=== PATIENT | male | born 1985 | race Caucasian/White ===

== ENCOUNTER 2021-06-20 21:50 | Emergency (ER) | payer OTHER ==
[~2021-06-20] VITALS: Ht 170.2 cm; Wt 106.6 kg
[2021-06-20 21:51] VITALS: BP 135/89
[2021-06-20] MEDS ORDERED: OMEP-218 PO (22:01)
[2021-06-20] MEDS ORDERED: LISI10TA22 PO (22:01)
[2021-06-20] MEDS ORDERED: DULO1CAP6 PO (22:01)
[2021-06-20] MEDS ORDERED: CYCL-707 PO (22:01)
[2021-06-20] MEDS ORDERED: TIZA4TAB4 PO (22:01)
[2021-06-20] MEDS ORDERED: GABA800T4 PO (22:01)
[2021-06-20] MEDS ORDERED: BUSP10TA PO (22:01)
[2021-06-20] MEDS ORDERED: QUET100T2 PO (22:01)
[2021-06-21 00:25] LABS: BASO # 0.1 10^3/uL (0.0-0.2); BASO % 0.6 % (0.0-1.0); EOS # 0.2 10^3/uL (0.0-0.5); EOS % 1.5 % (0.0-3.0); HEMATOCRIT 45.5 % (42.0-52.0); HEMOGLOBIN 15.6 g/dl (13.5-17.5); LYMPH % 22.8 % (24.0-44.0); MEAN CORPUSCULAR HEMOGLOBIN 30.1 pg (27.0-33.0); MEAN CORPUSCULAR HGB CONC 34.3 g/dl (32.0-36.5); MEAN CORPUSCULAR VOLUME 87.8 fl (80.0-96.0); MONO # 0.9 10^3/uL (0.0-0.8); MONO % 6.6 % (2.0-8.0); NEUTROPHILS # 8.8 10^3/uL (1.5-8.5); NEUTROPHILS % 67.8 % (36.0-66.0); PLATELET COUNT, AUTOMATED 292 10^3/uL (150-450); RED BLOOD COUNT 5.18 10^6/uL (4.30-6.10)
[2021-06-21 00:27] LABS: ALT/SGPT 60 U/L (12-78); BILIRUBIN,TOTAL 0.3 MG/DL (0.2-1.0); BLOOD UREA NITROGEN 9 MG/DL (7-18); CALCIUM LEVEL 9.4 MG/DL (8.5-10.1); CARBON DIOXIDE LEVEL 28 MEQ/L (21-32); CHLORIDE LEVEL 108 MEQ/L (98-107); CREATININE FOR GFR 0.91 MG/DL (0.70-1.30); GLOMERULAR FILTRATION RATE > 60.0 (>60); GLUCOSE, FASTING 107 MG/DL (70-100); SODIUM LEVEL 141 MEQ/L (136-145)
[2021-06-21] MEDS ORDERED: ISOVUE-370 76% 100ML VIAL As Ordered ONE (00:52)
--- NOTE | 2021-06-21 01:09 | REPVR ---
PROCEDURE INFORMATION: Exam: CT Abdomen And Pelvis With Contrast Exam date and time: 06/20/2021 11:49 PM Age: 36 years old Clinical indication: Abdominal pain; Additional info: Abdominal pain/brbpr TECHNIQUE: Imaging protocol: Computed tomography of the abdomen and pelvis with contrast. Radiation optimization: All CT scans at this facility use at least one of these dose optimization techniques: automated exposure control; mA and/or kV adjustment per patient size (includes targeted exams where dose is matched to clinical indication); or iterative reconstruction. Contrast material: ISO; Contrast volume: 100 ml; Contrast route: INTRAVENOUS (IV); COMPARISON: No relevant prior studies available. FINDINGS: Lungs: No suspicious mass or airspace process in the visualized lung bases. Liver: Liver is decreased in density, consistent with fatty infiltration. Gallbladder and bile ducts: Gallbladder is present and shows no evidence of gallstone. Pancreas: Pancreas appears normal. No focal mass or peripancreatic inflammation. Spleen: Spleen appears homogeneous without focal mass. Adrenal glands: Adrenal glands are normal in appearance. Kidneys and ureters: Left kidney is unremarkable. Right kidney demonstrates mild collecting system and ureteral dilatation but with no identifiable stone or functional delay. Stomach and bowel: No evidence of small bowel obstruction. No evidence of acute diverticulitis. Appendix: Appendix is not seen. No RLQ inflammation to suggest appendicitis. Intraperitoneal space: No pneumoperitoneum. Vasculature: No aortic aneurysm. Main portal and splenic veins enhance normally. Lymph nodes: No enlarged lymph nodes. Urinary bladder: Urinary bladder is distended. Reproductive: No overt enlargement of the prostate gland. Bones/joints: Bony structures show no acute fracture or destructive process. Transitional vertebral segment is present at the lumbosacral junction. Soft tissues: Fat containing umbilical hernia is present. IMPRESSION: No acute or concerning abdominal or pelvic process to explain rectal bleeding. Electronically signed by: Donnell Ritchie On 06/21/2021 01:08:56 AM
[2021-06-21] MEDS ORDERED: GI COCKTAIL 50ML BTL(HYOSCYAMINE/MAALOX/LIDOCAINE VISCOUS)(1:3:1) PO ONE (02:50)
[2021-06-21] MEDS ORDERED: ONDA4TAB6 PO (02:50)
[2021-06-21] MEDS ORDERED: SUCR1TA PO (02:50)
[2021-06-21] MEDS ORDERED: ONDANSETRON 4MG/2ML VIAL IV ONE (02:50)
== END 2021-06-21 04:10 | disposition home or self-care (01) ==
LOC: M ED 21:50
DX: K29.70 Gastritis, unspecified, without bleeding (principal); I10 Essential (primary) hypertension; F33.9 Major depressive disorder, recurrent, unspecified; Z79.899 Other long term (current) drug therapy; F12.20 Cannabis dependence, uncomplicated
CPT/HCPCS: 74177; 80053; 83605; 83735; 85025; 86140; 87798; 96374; 99282; J2405; Q9967

== ENCOUNTER 2021-08-15 02:42 | Emergency (ER) | payer OTHER ==
[~2021-08-15] VITALS: Ht 172.7 cm; Wt 102.7 kg
[~2021-08-15 02:42] MED LIST: BUSP10TA PO; CYCL-707 PO; DULO1CAP6 PO; GABA800T4 PO; LISI10TA22 PO; OMEP-218 PO; ONDA4TAB6 PO; QUET100T2 PO; SUCR1TA PO; TIZA4TAB4 PO
--- OUTSIDE RECORDS SUMMARY | 2021-08-15 02:47 | CCD ---
Author Author Lalo Gerard Organization Unknown Address [address] [address] Phone Care Team Providers Care Wool Puller Name Role Phone GerardAnaJefferson PCP Allergies, Adverse Reactions, Alerts Concept Allergy Name Reaction Severity Onset Date Status Documentation Date Phone Number Npid Taxonomy Code Taxonomy Desc Author Last Name Author Fi rst Name Concept Type [id number] Invega Trinza (paliperidone palm (3-month)) Blah 09/26/2017 Active 09/26/2017 [id number] Licensed Practical Nurse Ed hoang RXNORM Problem List Concept Problem Description Status Start Date Created Date Resolv ed Date Snomed Code F25.1 Schizoaffective Disorder, Depressive type Active 09/30/20 19 09/30/2019 F41.1 Generalized Anxiety Disorder Active 06/30/2016 06/30/2016 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 Active 09/30/2019 09/30/2019 Z72.0 Tobacco Use Disorder, Mild Active 07/26/2021 F12.10 Cannabis Use Disorder, Mild Active 07/26/2021 Medications Rx Norm Medication Route Route Concept Start Date Stop Date Dosage Karthikeyan quency Duration Formula Strength Dosage Form Dosage Form Code Dosage Description Medication Id Account Npid Author First Name Author Last Name Taxonomy Code Taxonomy Desc Phone Number [id number] duloxetine by mouth [id number] 08/23/2020 twice a day 60 mg capsule,delayed release(DR/EC) [id number] Hunter Gerard [id number] Nurse Practitioner [phone] [id number] buspirone 01/03/2021 09/13/2021 28 10 mg tablet 33896 [id number] Jefferson Gerard [id number] Nurse Practitioner [phone] [id number] quetiapine 01/03/2021 09/13/2021 28 400 mg tablet 75826 [id number] Jefferson Gerard [id number] Nurse Practitioner [phone] [id number] quetiapine 04/29/2021 09/19/2021 30 100 mg tablet 56889 [id number] [id number] Jefferson Gerard [id number] Nurse Practitioner [phone] Social History Social History Element Description Concept Effective Date Smoking Status Current every day smoker [id number] 2 Immunizations No Data in Section Vital Signs No Data in Section Procedures Date Concept Id Description Targeted Site Concept Targeted Site Concept Type 07/26/2021 54384-37 [facility] Telemed E/M Lvl 3--Est pt CPT Patient has no history of implantable de vices Encounters Encounter Start Date End Date Encounter Type Description Diagnosis Di agnosis Desc Location Author First Name Author Last Name Npid Taxonomy Cod e Taxonomy Desc Phone Number Location Addr1 Location Addr2 Location [facility] Location Sta te Location [facility] [id number] 07/26/2021 07/26/2021 [id number] [facility] Telemed E/M Lvl 3--Est p t F25.1 Schizoaffective disorder, depressive type [facility] Moustapha Paulino [phone] [id number] Nurse Practitioner [phone] [address] [address] Plan of Treatment No Data in Section Lab Results No Data in Section Instructions No Data in Section Functional Cognitive Status No Data in Section Insurance Providers Insurance Id Policy Effective Date Policy Thru Date Hstry N fifi [id number] 2018 [employer] Managed Taurus johnson
--- OUTSIDE RECORDS SUMMARY | 2021-08-15 02:47 | CCD | Continuity of Care Document ---
Author Author Lalo BOYCE Organization Unknown Address [address], [address] [place] [address] Phone [phone] Care Team Providers Care Merchandising Internship Name Role Phone Lico Walton M.D. AUTM [phone] Problems Active Problems Provider Date Essential hypertension Peyman Boyce M.D. Onset: 04/15 Social History Type Date Description Comments Sex Unknown ETOH Use Denies alcohol use Tobacco Use Start: Unknown Non Smoker Allergies, Adverse Reactions, Alerts Description No Known Drug Allergies Medications Active Medications SIG Qnty Indications Ordering Provide r Date Clenpiq 10-3.5-12mg-GM -GM/160ML S olution follow pre-procedure instructions. start day before procedure. (if not covered by insurance please fill gavilyte script). 320ml Jeremiah Boyce M.D. 05/25/2021 Gavilyte-G 236gm Solution Rec mix with 4 liters of water to prepare solution. follow pre-procedure instructions. 4000ml Peyman Boyce M.D. 05/25/[address] take 4 tablets together as per bowel preparation instructions. 4tabs Peyman Boyce M.D. 05/25/2021 Buspirone HCL 10mg Tablets 1t ab tid Unknown Duloxetine HCL 60mg Caps DR Part 1tab qd Unknown Gabapentin 800mg Tablets 1tab tid Unknown Lisinopril 10mg Tablets 1tab qd Unknown Omeprazole 20mg Capsules DR 1 cap bid Unknown Quetiapine Fumarate 400mg Tablets 1tab qd (take w/50mg) Unknown Quetiapine Fumarate 50mg Tablets 1tab qd (take w/400mg) Unknown Immunizations Description No Information Available Vital Signs Date Vital Result Comment 05/11/2021 12:11pm BP Systolic 118 mmHg BP Diastolic 70 mmHg Height 67 inches 5'7" Weight 230.00 lb BMI (Body Mass Index) 36.0 kg/m2 Noble Body Weight 148 lb Weight 104.328 kg BSA (Body Surface Area) 2.15 m2 Results Test Acquired Date Facility Test Result H/L Range Note CBC With Differential 05/11/2021 [facility] Main Lab [address] [place] [address] [phone] White Blood Count 9.6 10 Normal 4.0-10.0 Red Blood Count 5.33 10 Normal 4.30-6.10 Hemoglobin 15.6 g/dL Normal 13.5-17.5 Hematocrit 46.5 % Normal 42.0-52.0 Mean Corpuscular Volume 87.2 fl Normal 80.0-96.0 Mean Corpuscular Hemoglobin 29.3 pg Normal 27.0-33.0 Mean Corpuscular HGB Conc 33.5 g/dL Normal 32.0-36.5 Red Cell Distribution Width 12.9 % Normal 11.5-14.5 Platelet Count, Automated 278 10 Normal 150-450 Neutrophils % 44.3 % Normal 36.0-66.0 Lymph % 42.3 % Normal 24.0-44.0 Rice % 9.3 % High 2.0-8.0 Eos % 2.6 % Normal 0.0-3.0 Baso % 0.7 % Normal 0.0-1.0 Immature Granulocyte % 0.8 % Normal 0-3.0 Nucleated Red Blood Cell % 0.0 % Normal 0-0 Neutrophils # 4.3 10 Normal 1.5-8.5 Lymph # 4.1 10 Normal 1.5-5.0 Rice # 0.9 10 High 0.0-0.8 Eos # 0.3 10 Normal 0.0-0.5 Baso # 0.1 10 Normal 0.0-0.2 Total Iron Binding Capacit 05/11/2021 [facility] Main Lab [address] [place] [address] [phone] Iron (Fe) 83 g/dL Normal 65-175 Total Iron Binding Capacity 350 g/dL Normal 250-450 Percent Saturation 23.7 % Normal 19.7-50.0 Laboratory test finding 05/11/2021 [facility] Main Lab [address] [place] [address] [phone] Ferritin 74 NG/ML Normal 26-388 BUN & Creatinine ([facility]) 05/11/2021 [facility] Main Lab [address] [place] [address] [phone] Blood Urea Nitrogen 11 mg/dL Normal 7-18 Creatinine With GFR 05/11/2021 [facility] Lab [address] [place] [address] [phone] Creatinine For GFR 0.84 mg/dL Normal 0.70-1.30 Glomerular Filtration Rate > 60.0 Normal >60 1 Liver Profile 05/11/2021 [facility] Lab [address] [place] [address] [phone] Ast/Sgot 38 U/L High 7-37 Alt/SGPT 73 U/L Normal 12-78 Alkaline Phosphatase 115 U/L Normal 45-117 Bilirubin,Total 0.3 mg/dL Normal 0.2-1.0 Bilirubin,Direct < 0.1 mg/dL Normal 0.0-0.2 Total Protein 7.0 GM/DL Normal 6.4-8.2 Albumin 3.9 GM/DL Normal 3.2-5.2 Albumin/Globulin Ratio 1.3 Normal Laboratory test finding 05/11/2021 [facility] Main Lab [address] [place] [address] [phone] Tissue Transglutaminase IgA <2 U/mL Normal 0-3 2 Iga Subclasses 05/11/2021 [facility] Lab [address] [place] [address] [phone] IgA Serum (part of Subclasses) 138 mg/dL Normal 9 0-386 Igasub2 105.2 mg/dL Normal 73.2-301.2 Igasub3 26.2 mg/dL Normal 13.4-97.9 Laboratory test finding 05/11/2021 [facility] Main Lab [address] [place] [address] [phone] Stool For Polys <pending> Fat Fecal Qualitative <pending> Pancreatic Elastase Stool Sendout <pending> 1 Units are mL/min/1.73 m2 Chronic Kidney Disease Staging per NKF: Stage I & II GFR >=60 Normal to Mildly Decreased Stage III GFR 30-59 Moderately Decreased Stage IV GFR 15-29 Severely Decreased Stage V GFR <15 Very Little GFR Left ESRD GFR <15 on ENTRY CLERK 2 Negative 0 - 3 Weak Positive 4 - 10 Positive >10 . Tissue Transglutaminase (tTG) has been identified as the endomysial antigen. Studies have demonstr- ated that endomysial IgA antibodies have over 99% specificity for gluten sensitive enteropathy. Performed at: - [facility] [address] [id number] [employer] Machine Operator: Cee Padilla MD, Phone: [phone] Performed at: - [facility] [address] [id number] [place] Machine Operator: Jayna Braswell MD, Phone: [phone] Procedures Date Code Description Status 05/11/2021 81923 Office/Outpatient New Moderate M DM 45-59 Minutes Completed Medical Devices Description No Information Available Encounters Type Date Location Provider Dx Diagnosis Office Visit 05/11/2021 11:10a [facility] M.D. R19.7 Diarrhea, unspecified K92.1 Melena Assessments Date Code Description Provider 05/11/2021 R19.7 Diarrhea, unspecified Peyman Boyce M.D. 05/11/2021 K92.1 Melena Peyman Cantor ala, M.D. Plan of Treatment Future Appointment(s):* 07/18/2021 2:00 am - Peyman Boyce M.D. at [facility] Gastroenterology Practice Functional Status Description No Information Available Mental Status Description No Information Available Referrals Refer to Dr Reason for Referral Status Appt Date Peyman Boyce M.D. K59.00 CONSTIPATION Scheduled 05/11/2021 [facility] [address], [address] [place] [address] [phone]
--- OUTSIDE RECORDS SUMMARY | 2021-08-15 02:48 | CCD ---
Author Author [facility] Address Unknown Phone Unavailable Care Team Providers Care Preschool Teacher Name Role Phone Maren Walton MD Unavailable Unavailable Maren Walton MD Unavailable Unavailable Maren Walton MD Unavailable Unavailable Maren Walton MD Unavailable Unavailable Maren Walotn MD Unavailable Unavailable Maren Walton MD Unavailable Unavailable Maren Walton MD Unavailable Unavailable Maren Walton MD Unavailable Unavailable Maren Walton MD Unavailable Unavailable Maren Walton MD Unavailable Unavailable Maren Walton MD Unavailable Unavailable Maren Walton MD Unavailable Unavailable Maren Walton MD Unavailable Unavailable Maren Walton MD Unavailable Unavailable Maren Walton MD Unavailable Unavailable Maren Walton MD Unavailable Unavailable Maren Walton MD Unavailable Unavailable Maren Walton MD Unavailable Unavailable Maren Walton MD Unavailable Unavailable Maren Walton MD Unavailable Unavailable Maren Walton MD Unavailable Unavailable Maren Walton MD Unavailable Unavailable Maren Walton MD Unavailable Unavailable Maren Walton MD Unavailable Unavailable Maren Walton MD Unavailable Unavailable Maren Walton MD Unavailable Unavailable Maren Walton MD Unavailable Unavailable Maren Walton MD Unavailable Unavailable Maren Walton MD Unavailable Unavailable Maren Walton MD Unavailable Unavailable Maren Walton MD Unavailable Unavailable Maren Walton MD Unavailable Unavailable Maren Walton MD Unavailable Unavailable Maren Walton MD Unavailable Unavailable Maren Walton MD Unavailable Unavailable Maren Walton MD Unavailable Unavailable Maren Walton MD Unavailable Unavailable Maren Walton MD Unavailable Unavailable Maren Walton MD Unavailable Unavailable Maren Walton MD Unavailable Unavailable Maren Walton MD Unavailable Unavailable Maren Walton MD Unavailable Unavailable Maren Walton MD Unavailable Unavailable Maren Walton MD Unavailable Unavailable Maren Walton MD Unavailable Unavailable Maren Walton MD Unavailable Unavailable Maren Walton MD Unavailable Unavailable Maren Walton MD Unavailable Unavailable Maren Walton MD Unavailable Unavailable Maren Walton MD Unavailable Unavailable Maren Walton MD Unavailable Unavailable Maren Walton MD Unavailable Unavailable Maren Walton MD Unavailable Unavailable Maren Walton MD Unavailable Unavailable Maren Walton MD Unavailable Unavailable Maren Walton MD Unavailable Unavailable Maren Walton MD Unavailable Unavailable Maren Walton MD Unavailable Unavailable Maren Walton MD Unavailable Unavailable Maren Walton MD Unavailable Unavailable Maren Walton MD Unavailable Unavailable Maren Walton MD Unavailable Unavailable Maren Walton MD Unavailable Unavailable Maren Walton MD Unavailable Unavailable Maren Walton MD Unavailable Unavailable Maren Walton MD Unavailable Unavailable Maren Walton MD Unavailable Unavailable Maren Walton MD Unavailable Unavailable Maren Walton MD Unavailable Unavailable Maren Walton MD Unavailable Unavailable Maren Walton MD Unavailable Unavailable Maren Walton MD Unavailable Unavailable Maren Walton MD Unavailable Unavailable Maren Walton MD Unavailable Unavailable Maren Walton MD Unavailable Unavailable Maren Walton MD Unavailable Unavailable Maren Walton MD Unavailable Unavailable Maren Walton MD Unavailable Unavailable Maren Walton MD Unavailable Unavailable Maren Walton MD Unavailable Unavailable Maren Walton MD Unavailable Unavailable Maren Walton MD Unavailable Unavailable Maren Walton MD Unavailable Unavailable Maren Walton MD Unavailable Unavailable Maren Walton MD Unavailable Unavailable Maren Walton MD Unavailable Unavailable Maren Walton MD Unavailable Unavailable Maren Walton MD Unavailable Unavailable Maren Walton MD Unavailable Unavailable Maren Walton MD Unavailable Unavailable Maren Walton MD Unavailable Unavailable Maren Walton MD Unavailable Unavailable Maren Walton MD Unavailable Unavailable Silva, Hugh Unavailable Unavailable Silva, Hugh Unavailable Unavailable Silva, Hugh Unavailable Unavailable Silva, Hugh Unavailable Unavailable Silva, Hugh Unavailable Unavailable Silva, Hugh Unavailable Unavailable Silva, Hugh Unavailable Unavailable Silva, Hugh Unavailable Unavailable Silva, Hugh Unavailable Unavailable Silva, Hugh Unavailable Unavailable Silva, Hugh Unavailable Unavailable Silva, Hugh Unavailable Unavailable Silva, Hugh Unavailable Unavailable Silva, Hugh Unavailable Unavailable Silva, Hugh Unavailable Unavailable Silva, Hugh Unavailable Unavailable Silva, Hugh Unavailable Unavailable Silva, Uhgh Unavailable Unavailable Silva, Hugh Unavailable Unavailable Silva, Hugh Unavailable Unavailable Silva, Hugh Unavailable Unavailable Silva, Hugh Unavailable Unavailable Silva, Hugh Unavailable Unavailable Silva, Hugh Unavailable Unavailable Silva, Hugh Unavailable Unavailable Silva, Hugh Unavailable Unavailable Silva, Hugh Unavailable Unavailable Silva, Hugh Unavailable Unavailable Silva, Hugh Unavailable Unavailable Silva, Hugh Unavailable Unavailable Silva, Hugh Unavailable Unavailable Silva, Hugh Unavailable Unavailable Silva, Hugh Unavailable Unavailable Silva, Hugh Unavailable Unavailable Silva, Hugh Unavailable Unavailable Silva, Hugh Unavailable Unavailable Silva, Hugh Unavailable Unavailable Silva, Hugh Unavailable Unavailable Silva, Hugh Unavailable Unavailable Silva, Hugh Unavailable Unavailable Silva, Hugh Unavailable Unavailable Silva, Hugh Unavailable Unavailable Silva, Hugh Unavailable Unavailable Silva, Hugh Unavailable Unavailable Silva, Hugh Unavailable Unavailable Ap MARTINEZ MD Unavailable Unavailable Ap MARTINEZ MD Unavailable Unavailable Ap MARTINEZ MD Unavailable Unavailable Ap MARTINEZ MD Unavailable Unavailable Ap MARTINEZ MD Unavailable Unavailable Ap MARTINEZ MD Unavailable Unavailable Ap MARTINEZ MD Unavailable Unavailable Ap MARTINEZ MD Unavailable Unavailable Ap MARTINEZ MD Unavailable Unavailable Ap MARTINEZ MD Unavailable Unavailable Ap MARTINEZ MD Unavailable Unavailable Ap MARTINEZ MD Unavailable Unavailable Ap MARTINEZ MD Unavailable Unavailable Ap MARTINEZ MD Unavailable Unavailable Ap MARTINEZ MD Unavailable Unavailable Ap MARTINEZ MD Unavailable Unavailable Ap MARTINEZ MD Unavailable Unavailable Sj Gerard PHARMACY TECHNICIAN ASSISTANT Unavailable Unavailable Sj Gerard PHARMACY TECHNICIAN ASSISTANT Unavailable Unavailable Sj Gerard PHARMACY TECHNICIAN ASSISTANT Unavailable Unavailable Monty BOYCE MD Unavailable Unavailable Monty BOYCE MD Unavailable Unavailable Monty BOYCE MD Unavailable Unavailable Monty BOYCE MD Unavailable Unavailable Monty BOYCE MD Unavailable Unavailable Monty BOYCE MD Unavailable Unavailable Monty BOYCE MD Unavailable Unavailable Monty BOYCE MD Unavailable Unavailable Monty BOYCE MD Unavailable Unavailable Monty BOYCE MD Unavailable Unavailable Monty BOYCE MD Unavailable Unavailable Monty BOYCE MD Unavailable Unavailable Monty BOYCE MD Unavailable Unavailable Monty BOYCE MD Unavailable Unavailable Monty BOYCE MD Unavailable Unavailable Monty BOYCE MD Unavailable Unavailable Monty BOYCE MD Unavailable Unavailable Monty BOYCE MD Unavailable Unavailable Monty BOYCE MD Unavailable Unavailable Monty BOYCE MD Unavailable Unavailable Monty BOYCE MD Unavailable Unavailable Monty BOYCE MD Unavailable Unavailable Monty BOYCE MD Unavailable Unavailable Monty BOYCE MD Unavailable Unavailable Monty BOYCE MD Unavailable Unavailable Monty BOYCE MD Unavailable Unavailable Monty BOYCE MD Unavailable Unavailable Monty BOYCE MD Unavailable Unavailable Monty BOYCE MD Unavailable Unavailable Monty BOYCE MD Unavailable Unavailable Monty BOYCE MD Unavailable Unavailable Monty BOYCE MD Unavailable Unavailable Monty BOYCE MD Unavailable Unavailable Re-disclosure Warning The records that you are about to access may contain information from federally-assisted alcohol or drug abuse programs. If such information is present, then the following federally mandated warning applies: This information has been disclosed to you from records protected by federal confidentiality rules (42 CFR part 2). The federal rules prohibit you from making any further disclosure of this information unless further disclosure is expressly permitted by the written consent of the person to whom it pertains or as otherwise permitted by 42 CFR part 2. A general authorization for the release of medical or other information is NOT sufficient for this purpose. The Federal rules restrict any use of the information to criminally investigate or prosecute any alcohol or drug abuse patient.The records that you are about to access may contain highly sensitive health information, the redisclosure of which is protected by Article 27-F of the [facility] Public Health law. If you continue you may have access to information: Regarding HIV / AIDS; Provided by facilities licensed or operated by the [facility] Office of Mental Health; or Provided by the [facility] Office for People With Developmental Disabilities. If such information is present, then the following [facility] mandated warning applies: This information has been disclosed to you from confidential records which are protected by state law. State law prohibits you from making any further disclosure of this information without the specific written consent of the person to whom it pertains, or as otherwise permitted by law. Any unauthorized further disclosure in violation of state law may result in a fine or residential sentence or both. A general authorization for the release of medical or other information is NOT sufficient authorization for further disc losure. Allergies and Adverse Reactions Type Description Substance Reaction Status Data Source(s ) Propensity to adverse reactions to substance Invega Tr inza (paliperidone palm (3-month)) 2.625 ML paliperidone palmitate 312 MG/ML Prefilled Sy ringe [Invega] Active [facility] ([facility]) Family History Family Member Name Family Member Gender Family Member Status Date o f Status Description Data Source(s) Unknown Male Problem [facility] ([facility]) Encounters Encounter Providers Location Date Indications Data Source(s ) Outpatient Attender: Jefferson Gerard NP [facility] Skilled Nursing 07/26/2021 02:30:00 AM EDT - 07/26/2021 02:30:00 AM EDT [facility] ([facility]) Attender: Jefferson Gerard NP 07/26/2021 12:00:00 AM EDT [facility] ([facility]) Outpatient Attender: SANTIAGO Contreras/Humberto/Reed yates/Reincorbin 05/11/2021 11:10:00 AM EDT [facility]) Outpatient Attender: Jefferson Gerard PHARMACY TECHNICIAN ASSISTANT [facility] 03/30/2021 01:00:00 AM EDT - 03/30/2021 01:00:00 AM EDT [facility] ([facility]) Attender: Jefferson Gerard PHARMACY TECHNICIAN ASSISTANT 03/30/2021 12:00:00 AM EDT [facility] ([facility]) Dennis Walton MD: [address] [place] [address], Ph. Attender: Dennis Walton MD [facility] Medical 03/25/2021 12:00:00 AM EDT [facility] ([facility]) Dennis Walton MD: [address] [place] [address], Ph. Attender: Dennis Walton MD [facility] Medical 03/25/2021 12:00:00 AM EDT [facility] ([facility]) Outpatient Attender: Hugh Silva Physical Therapy 03/16/2021 10:00:0 0 AM EDT [facility] ([facility]) Dennis Walton MD: [address] [place] [address], Ph. Attender: Dennis Walton MD [facility] Medical 03/15/2021 12:00:00 AM EDT [facility] ([facility]) Dennis Walton MD: [address] [place] [address], Ph. Attender: Dennis Walton MD [facility] Medical 03/15/2021 12:00:00 AM EDT [facility] ([facility]) Dennis Walton MD: [address] [place] [address], Ph. Attender: Dennis Walton MD [facility] Medical 01/31/2021 12:00:00 AM EDT [facility] ([facility]) Dennis Walton MD: [address] [place] [address], Ph. Attender: Dennis Walton MD [facility] Medical 01/31/2021 12:00:00 AM EDT [facility] ([facility]) Dennis Walton MD: [address] [place] [address], Ph. Attender: Dennis Walton MD [facility] Medical 01/31/2021 12:00:00 AM EDT [facility] ([facility]) Outpatient Attender: Jefferson Gerard NP [facility] 01/26/2021 01:00:00 AM EDT - 01/26/2021 01:00:00 AM EDT [facility] ([facility]) Attender: Jefferson Gerard NP 01/26/2021 12:00:00 AM EDT [facility] ([facility]) Outpatient Attender: Jefferson Gerard NP [facility] 12/01/2020 02:00:00 AM EST - 12/01/2020 02:00:00 AM EST [facility] ([facility]) Attender: Jefferson Gerard NP 12/01/2020 12:00:00 AM EST [facility] ([facility]) Attender: Jefferson Gerard NP 12/01/2020 12:00:00 AM EST [facility] ([facility]) Outpatient Attender: Jefferson Gerard NP [facility] 11/03/2020 10:00:00 AM EST - 11/03/2020 10:00:00 AM EST [facility] ([facility]) Attender: Jefferson Gerard NP 11/03/2020 12:00:00 AM EST [facility] ([facility]) Outpatient Attender: DENNIS MARTINEZ MD [facility] 09/27/2020 01:00:00 AM EST - 09/27/2020 01:00:00 AM EST [facility] ([facility]) Attender: DENNIS MARTINEZ MD 09/27/2020 12:00:00 A M EST [facility] ([facility]) Functional Status Immunizations Vaccine Date Status Description Data Source(s) Tdap 03/25/2021 11:41:00 AM EDT completed 03/25/2021 0.5 mL [facility] ([facility]) Tdap 03/25/2021 11:41:00 AM EDT completed 03/25/2021 0.5 mL [facility] ([facility]) COVID-19 VACCINE Horace 03/08/2021 12:00:00 AM EDT completed [place] Vaccine Series Complete: YESThis Data wa s Submitted to [facility] Via [employer]. Medications Medication Brand Name Start Date Product Form Dose Route Admi nistrative Instructions Pharmacy Instructions Status Indications Reaction Description Data Source(s) Clenpiq Clenpiq 05/25/2021 12:00:00 AM EDT active [facility] ([facility], ) POLYETHYLENE GLYCOL 3350 59 MG/ML / Pota ssium Chloride 0.01 MEQ/ML / Sodium Bicarbonate 0.02 MEQ/ML / Sodium Chloride 0.025 MEQ/ML / sodium sulfate 0.04 MEQ/ML Oral Solution [Gaviltye-G] Gavilyte-G 05/25/2021 12:00:00 AM EDT active [facility] ([facility], ) Bisacodyl 5 MG Delayed Release Oral Tablet [Dulcolax] Dulcol ax 05/25/2021 12:00:00 AM EDT active [facility] ([facility], ) quetiapine 100 MG Oral Tablet quetiapine 04/29/2021 12:00:00 AM EDT 100 mg completed <td ID="Medicat ionRxNorm_4">638659</td><td ID="MedicationMedication_4">quetiapine</td><td ID="MedicationRoute_4"></td><td ID="MedicationRouteConcept_4"></td><td ID="MedicationStartDate_4">04/29/2021</td><td ID="MedicationStopDate_4">09/19/2021</td><td ID="MedicationDosageFrequency_4"></td><td ID="MedicationDuration_4">30</td><td ID="MedicationFormulaStrength_4">100 mg</td><td ID="MedicationDosageForm_4">tablet</td><td ID="MedicationDosageFormCode_4"></td><td ID="MedicationDosageDescription_4"></td><td ID="MedicationMedicationId_4">[id number]</td><td ID="MedicationAccount_4">[id number]</td><td ID="MedicationNpid_4">[id number]</td><td ID="MedicationAuthorFirstName_4">Jefferson</td><td ID="MedicationAuthorLastName_4">Gerard</td><td ID="MedicationTaxonomyCode_4">[id number]</td><td ID="MedicationTaxonomyDesc_4">Nurse Practitioner</td><td ID="MedicationPhoneNumber_4">[phone]</td> [facility] ([facility]) gabapentin 800 MG Oral Tablet Gabapentin 03/16/2021 12:00:00 AM EDT ORAL active [facility] ([facility]) quetiapine 100 MG Oral Tablet quetiapine 01/11/2021 12:00:00 AM EDT 100 mg completed <td ID="Medicat ionRxNorm_5">266672</td><td ID="MedicationMedication_5">quetiapine</td><td ID="MedicationRoute_5"></td><td ID="MedicationRouteConcept_5"></td><td ID="MedicationStartDate_5">01/11/2021</td><td ID="MedicationStopDate_5">02/10/2021</td><td ID="MedicationDosageFrequency_5"></td><td ID="MedicationDuration_5">30</td><td ID="MedicationFormulaStrength_5">100 mg</td><td ID="MedicationDosageForm_5">tablet</td><td ID="MedicationDosageFormCode_5"></td><td ID="MedicationDosageDescription_5"></td><td ID="MedicationMedicationId_5">[id number]</td><td ID="MedicationAccount_5">[id number]</td><td ID="MedicationNpid_5">[id number]</td><td ID="MedicationAuthorFirstName_5">Jefferson</td><td ID="MedicationAuthorLastName_5">Gerard</td><td ID="MedicationTaxonomyCode_5">[id number]</td><td ID="MedicationTaxonomyDesc_5">Nurse Practitioner</td><td ID="MedicationPhoneNumber_5">[phone]</td> [facility] ([facility]) quetiapine 400 MG Oral Tablet quetiapine 01/03/2021 12:00:00 AM EDT 400 mg completed <td ID="Medicat ionRxNorm_3">326197</td><td ID="MedicationMedication_3">quetiapine</td><td ID="MedicationRoute_3"></td><td ID="MedicationRouteConcept_3"></td><td ID="MedicationStartDate_3">01/03/2021</td><td ID="MedicationStopDate_3">09/13/2021</td><td ID="MedicationDosageFrequency_3"></td><td ID="MedicationDuration_3">28</td><td ID="MedicationFormulaStrength_3">400 mg</td><td ID="MedicationDosageForm_3">tablet</td><td ID="MedicationDosageFormCode_3"></td><td ID="MedicationDosageDescription_3"></td><td ID="MedicationMedicationId_3">[id number]</td><td ID="MedicationAccount_3">[id number]</td><td ID="MedicationNpid_3">[id number]</td><td ID="MedicationAuthorFirstName_3">Jefferson</td><td ID="MedicationAuthorLastName_3">Gerard</td><td ID="MedicationTaxonomyCode_3">[id number]</td><td ID="MedicationTaxonomyDesc_3">Nurse Practitioner</td><td ID="MedicationPhoneNumber_3">[phone]</td> [facility] ([facility]) buspirone hydrochloride 10 MG Oral Tablet buspirone 2020 12:00:00 AM EDT 10 mg completed <td ID="Medica tionRxNorm_3">885106</td><td ID="MedicationMedication_3">buspirone</td><td ID="MedicationRoute_3"></td><td ID="MedicationRouteConcept_3"></td><td ID="MedicationStartDate_3">01/03/2021</td><td ID="MedicationStopDate_3"></td><td ID="MedicationDosageFrequency_3"></td><td ID="MedicationDuration_3">28</td><td ID="MedicationFormulaStrength_3">10 mg</td><td ID="MedicationDosageForm_3">tablet</td><td ID="MedicationDosageFormCode_3"></td><td ID="MedicationDosageDescription_3"></td><td ID="MedicationMedicationId_3">[id number]</td><td ID="MedicationAccount_3">[id number]</td><td ID="MedicationNpid_3">[id number]</td><td ID="MedicationAuthorFirstName_3">Jefferson</td><td ID="MedicationAuthorLastName_3">Gerard</td><td ID="MedicationTaxonomyCode_3">[id number]</td><td ID="MedicationTaxonomyDesc_3">Nurse Practitioner</td><td ID="MedicationPhoneNumber_3">[phone]</td> [facility] ([facility]) Trazodone Hydrochloride 50 MG Oral Tablet trazodone 2020 12:00:00 AM EDT 50 mg completed <td ID="Medica tionRxNorm_2">[id number]</td><td ID="MedicationMedication_2">trazodone</td><td ID="MedicationRoute_2"></td><td ID="MedicationRouteConcept_2"></td><td ID="MedicationStartDate_2">01/03/2021</td><td ID="MedicationStopDate_2"></td><td ID="MedicationDosageFrequency_2"></td><td ID="MedicationDuration_2">28</td><td ID="MedicationFormulaStrength_2">50 mg</td><td ID="MedicationDosageForm_2">tablet</td><td ID="MedicationDosageFormCode_2"></td><td ID="MedicationDosageDescription_2"></td><td ID="MedicationMedicationId_2">[id number]</td><td ID="MedicationAccount_2">[id number]</td><td ID="MedicationNpid_2">[id number]</td><td ID="MedicationAuthorFirstName_2">Jefferson</td><td ID="MedicationAuthorLastName_2">Gerard</td><td ID="MedicationTaxonomyCode_2">[id number]</td><td ID="MedicationTaxonomyDesc_2">Nurse Practitioner</td><td ID="MedicationPhoneNumber_2">[phone]</td> [facility] ([facility]) buspirone hydrochloride 10 MG Oral Tablet buspirone 2020 12:00:00 AM EDT 10 mg completed <td ID="Medica tionRxNorm_2">322784</td><td ID="MedicationMedication_2">buspirone</td><td ID="MedicationRoute_2"></td><td ID="MedicationRouteConcept_2"></td><td ID="MedicationStartDate_2">01/03/2021</td><td ID="MedicationStopDate_2">09/13/2021</td><td ID="MedicationDosageFrequency_2"></td><td ID="MedicationDuration_2">28</td><td ID="MedicationFormulaStrength_2">10 mg</td><td ID="MedicationDosageForm_2">tablet</td><td ID="MedicationDosageFormCode_2"></td><td ID="MedicationDosageDescription_2"></td><td ID="MedicationMedicationId_2">[id number]</td><td ID="MedicationAccount_2">[id number]</td><td ID="MedicationNpid_2">[id number]</td><td ID="MedicationAuthorFirstName_2">Jefferson</td><td ID="MedicationAuthorLastName_2">Gerard</td><td ID="MedicationTaxonomyCode_2">[id number]</td><td ID="MedicationTaxonomyDesc_2">Nurse Practitioner</td><td ID="MedicationPhoneNumber_2">[phone]</td> [facility] ([facility]) Trazodone Hydrochloride 50 MG Oral Tablet trazodone 2019 12:00:00 AM EST 50 mg completed <td ID="Medica tionRxNorm_3">885444</td><td ID="MedicationMedication_3">trazodone</td><td ID="MedicationRoute_3"></td><td ID="MedicationRouteConcept_3"></td><td ID="MedicationStartDate_3">10/12/2020</td><td ID="MedicationStopDate_3"></td><td ID="MedicationDosageFrequency_3"></td><td ID="MedicationDuration_3"></td><td ID="MedicationFormulaStrength_3">50 mg</td><td ID="MedicationDosageForm_3">tablet</td><td ID="MedicationDosageFormCode_3"></td><td ID="MedicationDosageDescription_3"></td><td ID="MedicationMedicationId_3">[id number]</td><td ID="MedicationAccount_3">[id number]</td><td ID="MedicationNpid_3">[id number]</td><td ID="MedicationAuthorFirstName_3">Jefferson</td><td ID="MedicationAuthorLastName_3">Gerard</td><td ID="MedicationTaxonomyCode_3">[id number]</td><td ID="MedicationTaxonomyDesc_3">Nurse Practitioner</td><td ID="MedicationPhoneNumber_3">[phone]</td> [facility] ([facility]) quetiapine 400 MG Oral Tablet [Seroquel] Seroquel 10/12/2020 12 :00:00 AM EST 400 mg completed <td ID="Me dicationRxNorm_5">773252</td><td ID="MedicationMedication_5">Seroquel</td><td ID="MedicationRoute_5"></td><td ID="MedicationRouteConcept_5"></td><td ID="MedicationStartDate_5">10/12/2020</td><td ID="MedicationStopDate_5">12/17/2020</td><td ID="MedicationDosageFrequency_5"></td><td ID="MedicationDuration_5">30</td><td ID="MedicationFormulaStrength_5">400 mg</td><td ID="MedicationDosageForm_5">tablet</td><td ID="MedicationDosageFormCode_5"></td><td ID="MedicationDosageDescription_5"></td><td ID="MedicationMedicationId_5">[id number]</td><td ID="MedicationAccount_5">[id number]</td><td ID="MedicationNpid_5">[id number]</td><td ID="MedicationAuthorFirstName_5">Jefferson</td><td ID="MedicationAuthorLastName_5">Gerard</td><td ID="MedicationTaxonomyCode_5">[id number]</td><td ID="MedicationTaxonomyDesc_5">Nurse Practitioner</td><td ID="MedicationPhoneNumber_5">[phone]</td> [facility] ([facility]) duloxetine 60 MG Delayed Release Oral Capsule duloxetine 08/23/2020 12:00:00 AM EST 60 mg by mouth completed <td ID="MedicationRxNorm_1">257590</td><td ID="MedicationMedication_1">duloxetine</td><td ID="MedicationRoute_1">by mouth</td><td ID="MedicationRouteConcept_1">T03549</td><td ID="MedicationStartDate_1">08/23/2020</td><td ID="MedicationStopDate_1"></td><td ID="MedicationDosageFrequency_1">twice a day</td><td ID="MedicationDuration_1"></td><td ID="MedicationFormulaStrength_1">60 mg</td><td ID="MedicationDosageForm_1">capsule,delayed release(DR/EC)</td><td ID="MedicationDosageFormCode_1"></td><td ID="MedicationDosageDescription_1"></td><td ID="MedicationMedicationId_1">78121</td><td ID="MedicationAccount_1">[id number]</td><td ID="MedicationNpid_1">[id number]</td><td ID="MedicationAuthorFirstName_1">Jefferson</td><td ID="MedicationAuthorLastName_1">Gerard</td><td ID="MedicationTaxonomyCode_1">[id number]</td><td ID="MedicationTaxonomyDesc_1"> Nurse Practitioner</td><td ID="MedicationPhoneNumber_1">[phone]</td> [facility] ([facility]) duloxetine 60 MG Delayed Release Oral Capsule duloxetine 08/23/2020 12:00:00 AM EST 60 mg by mouth completed <td ID="MedicationRxNorm_3">827359</td><td ID="MedicationMedication_3">duloxetine</td><td ID="MedicationRoute_3">by mouth</td><td ID="MedicationRouteConcept_3">M03887</td><td ID="MedicationStartDate_3">08/23/2020</td><td ID="MedicationStopDate_3"></td><td ID="MedicationDosageFrequency_3">twice a day</td><td ID="MedicationDuration_3"></td><td ID="MedicationFormulaStrength_3">60 mg</td><td ID="MedicationDosageForm_3">capsule,delayed release(DR/EC)</td><td ID="MedicationDosageFormCode_3"></td><td ID="MedicationDosageDescription_3"></td><td ID="MedicationMedicationId_3">[id number]</td><td ID="MedicationAccount_3">[id number]</td><td ID="MedicationNpid_3">[id number]</td><td ID="MedicationAuthorFirstName_3">Dennis</td><td ID="MedicationAuthorLastName_3">Kristin</td><td ID="MedicationTaxonomyCode_3">[id number]</td><td ID="MedicationTaxonomyDesc_3"> Psychiatry</td><td ID="MedicationPhoneNumber_3">[phone]</td> [facility] ([facility]) duloxetine 60 MG Delayed Release Oral Capsule duloxetine 08/23/2020 12:00:00 AM EST 60 mg by mouth completed <td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 Neutrophils % 44.3 % 36.0-66.0 Normal (applies to non-numeric re sults) [facility]) Lymph % 42.3 % 24.0-44.0 Normal (applies to non-numeric resul ts) [facility] ([facility]) [place] % 9.3 % 2.0-8.0 Above high normal [facility] ([facility]) Eos % 2.6 % 0.0-3.0 Normal (applies to non-numeric resul ts) [facility] ([facility]) Baso % 0.7 % 0.0-1.0 Normal (applies to non-numeric resul ts) [facility] ([facility]) Immature Granulocyte % 0.8 % 0-3.0 Normal (applies to non-n umeric results) [facility] ([facility]) Nucleated Red Blood Cell % 0.0 % 0-0 Normal (applies to n on-numeric results) [facility] ([facility]) Neutrophils # 4.3 10 1.5-8.5 Normal (applies to non-numeric re sults) [facility] ([facility]) Lymph # 4.1 10 1.5-5.0 Normal (applies to non-numeric resul ts) [facility] ([facility]) [place] # 0.9 10 0.0-0.8 Above high normal [facility] ([facility]) Eos # 0.3 10 0.0-0.5 Normal (applies to non-numeric resul ts) [facility] ([facility]) Baso # 0.1 10 0.0-0.2 Normal (applies to non-numeric resul ts) [facility] ([facility]) ID Date Data Source [id number] 03/15/2021 09:16:00 AM EDT [place] ([facility]) Name Value Range Interpretation Code Description Data Angela rce(s) Supporting Document(s) Glucose [Mass/volume] in Serum or Plasma 103 mg/dL 65-99 Above high normal Glucose [place] ([facility]) Urea nitrogen [Mass/volume] in Serum or Plasma 10 mg/dL 7-25 Urea Nitrogen (BUN) [facility] ([facility]) Glomerular filtration rate/1.73 sq M.pre dicted among non-blacks [Volume Rate/Area] in Serum, Plasma or Blood by Creatinine-based formula (CKD-EPI) 94 mL/min/1.73m2 > or = 60 eGFR Non-afr. Martiniquais [facility] ([facility]) Creatinine [Mass/volume] in Serum or Plasma 1.02 mg/dL 0.60-1.35 Creatinine [facility] ([facility]) Glomerular filtration rate/1.73 sq M.pre dicted among blacks [Volume Rate/Area] in Serum, Plasma or Blood by Creatinine-based formula (CKD-EPI) 109 mL/min/1.73m2 > or = 60 eGFR [facility] ([facility]) Urea nitrogen/Creatinine [Mass Ratio] in Serum or Plasma not applic able 6-22 BUN/creatinine Ratio [facility] ([facility]) Sodium [Moles/volume] in Serum or Plasma 141 mmol/L 135-146 Sodium [facility] ([facility]) Chloride [Moles/volume] in Serum or Plasma 108 mmol/L 98-110 Chloride [facility] ([facility]) Potassium [Moles/volume] in Serum or Plasma 4.0 mmol/L 3.5-5.3 Potassium [facility] ([facility]) Carbon dioxide, total [Moles/volume] in Serum or Plasma 24 mmol/L 20-32 Carbon Dioxide [facility] ([facility]) Protein [Mass/volume] in Serum or Plasma 6.6 g/dL 6.1-8.1 [facility], [facility] Calcium [Mass/volume] in Serum or Plasma 9.0 mg/dL 8.6-10.3 Calcium [facility] ([facility]) Globulin [Mass/volume] in Serum by calculation 2.2 g/dL_(calc) 1.9- 3.7 Globulin [facility] ([facility]) Albumin [Mass/volume] in Serum or Plasma 4.4 g/dL 3.6-5.1 Albumin [facility] ([facility]) Albumin/Globulin [Mass Ratio] in Serum or Plasma 2.0 (calc) 1.0-2 .5 Albumin/globulin Ratio [facility] ([facility]) Aspartate aminotransferase [Enzymatic activity/volume] in Serum or Plasma 31 U/L 10-40 Ast [facility] ([facility]) Bilirubin.total [Mass/volume] in Serum or Plasma 0.3 mg/dL 0.2-1 .2 Bilirubin, Total [facility] ([facility]) Alanine aminotransferase [Enzymatic activity/volume] in Seru m or Plasma 46 U/L 9-46 Alt [place] ([facility]) Alkaline phosphatase [Enzymatic activity/volume] in Serum or Plasma 109 U/L 36-130 Alkaline Phosphatase [facility] ([facility]) ID Date Data Source [id number] 03/15/2021 09:16:00 AM EDT [facility]) Name Value Range Interpretation Code Description Data Angela rce(s) Supporting Document(s) Triiodothyronine resin uptake (T3RU) in Serum or Plasma 27 % 22 -35 T3 Uptake [place] ([facility]) Thyrotropin [Units/volume] in Serum or Plasma 0.81 mIU/L 0.40-4.50 Tsh [place] ([facility]) Thyroxine (T4) [Mass/volume] in Serum or Plasma 5.7 mcg/dL 4.9-10 .5 T4 (Thyroxine), Total [facility] ([facility]) Thyroxine (T4) free index in Serum or Plasma by calculation 1.4-3.8 Free T4 Index (T7) [facility]) ID Date Data Source [id number] 03/15/2021 09:16:00 AM EDT [facility]) Name Value Range Interpretation Code Description Data Angela rce(s) Supporting Document(s) Triglyceride [Mass/volume] in Serum or Plasma 251 mg/dL <150 Above high normal Triglycerides [facility] ([facility]) Cholesterol [Mass/volume] in Serum or Plasma 200 mg/dL <200 Above high normal [facility]olesterol, [facility] Cholesterol non HDL [Mass/volume] in Serum or Plasma 162 mg/dL_( calc) <130 Above high normal Non HDL [facility] Cholesterol in LDL [Mass/volume] in Serum or Plasma by calculation 123 mg/dL_(calc) Above high normal LDL-cholesterol [facility] ([facility]) Cholesterol in HDL [Mass/volume] in Serum or Plasma 38 mg/dL > or = 40 Below low normal HDL Cholesterol [facility] ([facility]) Cholesterol.total/Cholesterol in HDL [Mass Ratio] in Serum o r Plasma 5.3 (calc) <5.0 Above high normal Chol/hdlc Ratio [facility] ([facility]) ID Date Data Source [id number] 03/15/2021 09:16:00 AM EDT [place] ([facility]) Name Value Range Interpretation Code Description Data Angela rce(s) Supporting Document(s) Glucose [Mass/volume] in Serum or Plasma 103 mg/dL 65-99 Above high normal Glucose [facility] ([facility]) Glomerular filtration rate/1.73 sq M.pre dicted among blacks [Volume Rate/Area] in Serum, Plasma or Blood by Creatinine-based formula (CKD-EPI) 109 mL/min/1.73m2 > or = 60 eGFR [facility] ([facility]) Urea nitrogen [Mass/volume] in Serum or Plasma 10 mg/dL 7-25 Urea Nitrogen (BUN) [facility] ([facility]) Glomerular filtration rate/1.73 sq M.pre dicted among non-blacks [Volume Rate/Area] in Serum, Plasma or Blood by Creatinine-based formula (CKD-EPI) 94 mL/min/1.73m2 > or = 60 eGFR Non-afr. Martiniquais [facility] ([facility]) Creatinine [Mass/volume] in Serum or Plasma 1.02 mg/dL 0.60-1.35 Creatinine [facility] ([facility]) Carbon dioxide, total [Moles/volume] in Serum or Plasma 24 mmol/L 20-32 Carbon Dioxide [facility] ([facility]) Urea nitrogen/Creatinine [Mass Ratio] in Serum or Plasma not applic able 6-22 BUN/creatinine Ratio [facility] ([facility]) Chloride [Moles/volume] in Serum or Plasma 108 mmol/L 98-110 Chloride [facility] ([facility]) Sodium [Moles/volume] in Serum or Plasma 141 mmol/L 135-146 Sodium [facility] ([facility]) Potassium [Moles/volume] in Serum or Plasma 4.0 mmol/L 3.5-5.3 Potassium [facility] ([facility]) Albumin [Mass/volume] in Serum or Plasma 4.4 g/dL 3.6-5.1 [address]in [place] ([facility]) Calcium [Mass/volume] in Serum or Plasma 9.0 mg/dL 8.6-10.3 Calcium [place] ([facility]) Globulin [Mass/volume] in Serum by calculation 2.2 g/dL_(calc) 1.9- 3.7 Globulin [place] ([facility]) Protein [Mass/volume] in Serum or Plasma 6.6 g/dL 6.1-8.1 Protein, Total [place] ([facility]) Bilirubin.total [Mass/volume] in Serum or Plasma 0.3 mg/dL 0.2-1 .2 Bilirubin, Total [place] ([facility]) Alkaline phosphatase [Enzymatic activity/volume] in Serum or Plasma 109 U/L 36-130 Alkaline Phosphatase [place] ([facility]) Albumin/Globulin [Mass Ratio] in Serum or Plasma 2.0 (calc) 1.0-2 .5 Albumin/globulin Ratio [place] ([facility]) Aspartate aminotransferase [Enzymatic activity/volume] in Serum or Plasma 31 U/L 10-40 Ast [place] ([facility]) Alanine aminotransferase [Enzymatic activity/volume] in Seru m or Plasma 46 U/L 9-46 Alt [place] ([facility]) ID Date Data Source [id number] 03/15/2021 09:16:00 AM EDT [place] ([facility]) Name Value Range Interpretation Code Description Data Angela rce(s) Supporting Document(s) Triiodothyronine resin uptake (T3RU) in Serum or Plasma 27 % 22 -35 T3 Uptake [place] ([facility]) Thyroxine (T4) [Mass/volume] in Serum or Plasma 5.7 mcg/dL 4.9-10 .5 T4 (Thyroxine), Total [place] ([facility]) Thyroxine (T4) free index in Serum or Plasma by calculation 1.4-3.8 Free T4 Index (T7) [facility] ([facility]) Thyrotropin [Units/volume] in Serum or Plasma 0.81 mIU/L 0.40-4.50 Tsh [place] ([facility]) ID Date Data Source [id number] 03/15/2021 09:16:00 AM EDT [place] ([facility]) Name Value Range Interpretation Code Description Data Angela rce(s) Supporting Document(s) Triglyceride [Mass/volume] in Serum or Plasma 251 mg/dL <150 Above high normal Triglycerides [facility] ([facility]) Cholesterol in LDL [Mass/volume] in Serum or Plasma by calculation 123 mg/dL_(calc) Above high normal LDL-cholesterol [facility] ([facility]) Cholesterol in HDL [Mass/volume] in Serum or Plasma 38 mg/dL > or = 40 Below low normal HDL Cholesterol [facility] ([facility]) Cholesterol.total/Cholesterol in HDL [Mass Ratio] in Serum o r Plasma 5.3 (calc) <5.0 Above high normal Chol/hdlc Ratio [facility] ([facility]) Cholesterol [Mass/volume] in Serum or Plasma 200 mg/dL <200 Above high normal [facility]olesterol, [facility] Cholesterol non HDL [Mass/volume] in Serum or Plasma 162 mg/dL_( calc) <130 Above high normal Non HDL Cholesterol [facility] ([facility]) Procedure Social History Code Duration Value Status Description Data Source(s ) Smoking 07/26/2021 12:00:00 AM EDT Current every day smoker co mpleted Current every day smoker [facility] ([facility]) Smoking 03/30/2021 12:00:00 AM EDT Current every day smoker co mpleted Current every day smoker [facility] ([facility]) Smoking 01/26/2021 12:00:00 AM EDT Current every day smoker co mpleted Current every day smoker [facility] ([facility]) Smoking 12/01/2020 12:00:00 AM EST Current every day smoker co mpleted Current every day smoker [facility] ([facility]) Smoking 11/03/2020 12:00:00 AM EST Current every day smoker co mpleted Current every day smoker [facility] ([facility]) Smoking 09/27/2020 12:00:00 AM EST Current every day smoker co mpleted Current every day smoker [facility] ([facility]) Vital Signs ID Date Data Source [id number] Name Value Range Interpretation Code Description Data Source(s) Systolic blood pressure 118 mm[Hg] 118 mm[Hg] M [facility] ([facility], ) Diastolic blood pressure 70 mm[Hg] 70 mm[facility]Hg] [facility] Body height 67 [in_i] 67 [in_i] [facility] ([facility]) 5'7" Body weight 230.00 [lb_av] 230.00 [lb_av] [facility] Body mass index (BMI) [Ratio] 36.0 kg/m2 36.0 k g/m2 [facility] ([facility]) [place] body weight 148 [lb_av] 148 [lb_av] [facility] Body weight 104.328 kg 104.328 kg [facility] ([facility]) Body surface area Derived from formula 2.15 m2 2.15 m2 [facility] ([facility]) Diastolic blood pressure 87 mm[Hg] 87 mm[Hg] [facility] ([facility]) Body height 68 [in_i] 68 [in_i] [facility] ([facility]) Body mass index (BMI) [Ratio] 36.2 kg/m2 36.2 k g/m2 [facility] ([facility]) Systolic blood pressure 133 mm[Hg] 133 mm[Hg] [facility] ([facility]) Body weight 3808 [oz_av] 3808 [oz_av] [facility] ([facility]) Diastolic blood pressure 87 mm[Hg] 87 mm[Hg] [facility] ([facility]) Body height 68 [in_i] 68 [in_i] [facility] ([facility]) Body mass index (BMI) [Ratio] 36.2 kg/m2 36.2 k g/m2 [facility] ([facility]) Systolic blood pressure 133 mm[Hg] 133 mm[Hg] [facility] Body weight 3808 [oz_av] 3808 [oz_av] [facility] ([facility]) Body height 68 [in_i] 68 [in_i] [facility] ([facility]) Body height 68 [in_i] 68 [in_i] [facility] ([facility]) Diastolic blood pressure 79 mm[Hg] 79 mm[Hg] [facility] ([facility]) Body height 68 [in_i] 68 [in_i] [facility] ([facility]) Body mass index (BMI) [Ratio] 39 kg/m2 39 kg/ m2 [facility] ([facility]) Systolic blood pressure 126 mm[Hg] 126 mm[Hg] A [facility] ([facility]) Body weight 4100 [oz_av] 4100 [oz_av] [facility] ([facility]) Diastolic blood pressure 79 mm[Hg] 79 mm[Hg] [facility] ([facility]) Body height 68 [in_i] 68 [in_i] [facility] ([facility]) Body mass index (BMI) [Ratio] 39 kg/m2 39 kg/ m2 [facility] ([facility]) Systolic blood pressure 126 mm[Hg] 126 mm[Hg] [facility]) Body weight 4100 [oz_av] 4100 [oz_av] [facility] ([facility]) Diastolic blood pressure 79 mm[Hg] 79 mm[Hg] [facility] ([facility]) Body height 68 [in_i] 68 [in_i] [facility] ([facility]) Body mass index (BMI) [Ratio] 39 kg/m2 39 kg/ m2 [facility] ([facility]) Systolic blood pressure 126 mm[Hg] 126 mm[Hg] [facility]) Body weight 4100 [oz_av] 4100 [oz_av] [facility] ([facility]) Systolic blood pressure 0 mm[Hg] Normal (applies t o non-numeric results) 0 mm[Hg] [facility] ([facility]) Body height 0.00 in Normal (applies to non-numeric resu lts) 0.00 in [facility] ([facility]) Diastolic blood pressure 0 mm[Hg] Normal (applies to non-numeric results) 0 mm[Hg] [facility] ([facility]) Body weight Measured 0.00 lbs Normal (applies to n on-numeric results) 0.00 lbs [facility] ([facility]) Body mass index (BMI) [Ratio] 0.00 kg/m2 No rmal (applies to non-numeric results) 0.00 kg/m2 [facility] ([facility]) Body height 0.00 in Normal (applies to non-numeric resu lts) 0.00 in [facility] ([facility]) Body weight Measured 0.00 lbs Normal (applies to n on-numeric results) 0.00 lbs [facility] ([facility]) Body mass index (BMI) [Ratio] 0.00 kg/m2 No rmal (applies to non-numeric results) 0.00 kg/m2 [facility] ([facility]) Systolic blood pressure 0 mm[Hg] Normal (applies t o non-numeric results) 0 mm[Hg] [facility] ([facility]) Diastolic blood pressure 0 mm[Hg] Normal (applies to non-numeric results) 0 mm[Hg] [facility] ([facility]) Body height 0.00 in Normal (applies to non-numeric resu lts) 0.00 in [facility] ([facility]) Body weight Measured 0.00 lbs Normal (applies to n on-numeric results) 0.00 lbs [facility] ([facility]) Body mass index (BMI) [Ratio] 0.00 kg/m2 No rmal (applies to non-numeric results) 0.00 kg/m2 [facility] ([facility]) Systolic blood pressure 0 mm[Hg] Normal (applies t o non-numeric results) 0 mm[Hg] [facility] ([facility]) Diastolic blood pressure 0 mm[Hg] Normal (applies to non-numeric results) 0 mm[Hg] [facility] ([facility]) Patient Treatment Plan of Care Planned Activity Planned Date Details Description Data Source (s) vitamin B complex [facility] ([facility]) Trazodone Hydrochloride 50 MG Oral Tablet [facility] ([facility]) tramadol hydrochloride 50 MG Oral Tablet [facility] ([facility]) Sucralfate 1000 MG Oral Tablet [facility] ([facility]) quetiapine 100 MG Oral Tablet [facility] ([facility]) Promethazine Hydrochloride 25 MG Oral Tablet [facility] ([facility]) meloxicam 15 MG Oral Tablet [facility] ([facility]) Hydroxyzine Hydrochloride 50 MG Oral Tablet [facility] ([facility]) gabapentin 600 MG Oral Tablet [facility] ([facility]) duloxetine 30 MG Delayed Release Oral Capsule [facility] ([facility]) vitamin B complex [facility] ([facility]) Trazodone Hydrochloride 50 MG Oral Tablet [facility] ([facility]) tramadol hydrochloride 50 MG Oral Tablet [facility] ([facility]) Sucralfate 1000 MG Oral Tablet [facility] ([facility]) quetiapine 100 MG Oral Tablet [facility] ([facility]) Promethazine Hydrochloride 25 MG Oral Tablet [facility] ([facility]) meloxicam 15 MG Oral Tablet [facility] ([facility]) Hydroxyzine Hydrochloride 50 MG Oral Tablet [facility] ([facility]) gabapentin 600 MG Oral Tablet [facility] ([facility]) duloxetine 30 MG Delayed Release Oral Capsule [facility] ([facility]) Trazodone Hydrochloride 50 MG Oral Tablet [facility] ([facility]) tramadol hydrochloride 50 MG Oral Tablet [facility] ([facility]) Sucralfate 1000 MG Oral Tablet [facility] ([facility]) quetiapine 100 MG Oral Tablet [facility] ([facility]) Promethazine Hydrochloride 25 MG Oral Tablet [facility] ([facility]) Hydroxyzine Hydrochloride 50 MG Oral Tablet [facility] ([facility]) duloxetine 30 MG Delayed Release Oral Capsule [facility] ([facility])
--- OUTSIDE RECORDS SUMMARY | 2021-08-15 06:42 | CCD ---
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 Next Of Kin [address] [place] [address] NOMI HANSON Next Of Kin [address] [place] [address] NOMI WOOSD Next Of Kin [address] [place] [address] NOMI MAY Next Of Kin [address] [place] [address] NOMI ANGUIANO Next Of Kin [address] [place] [address] NOMI TAPIA Next Of Kin [address] [place] [address] [employer] Next [place] [address] DOMINOS PIZZA Next Of Kin [address] [place] [address] [place] [address] [employer] Next Of Kin [place] [id number] [employer] Next Of Kin Unknown Unavail able [place] [address] ST Next Of Kin Unknown Unavailable Rachele FINK Next Of Kin [address] [place] [address] UE Next Of Kin Unknown Unavailable R[place] [address] Unavailable LAUREN WOODS Next Of Kin [address] [place] [id number] PARTHA WOODS Next Of Kin [address] [place] [address] Care Team Providers Care Shovel Operator Name Role Phone Maren Walton MD Unavailable [...] Unavailable Unavailable Ap MARTINEZ MD Unavailable Unavailable GerardSjry SWITCHMAN SUPERVISOR Unavailable Unavailable Gerard R Jefferson SWITCHMAN SUPERVISOR Unavailable Unavailable Moustapha R Jefferson SWITCHMAN SUPERVISOR Unavailable Unavailable Monty BOYCE MD Unavailable Unavailable [...] is protected by Article 27-F of the [facility] Public Health law. If you continue you may have access to information: Regarding HIV / AIDS; Provided by facilities licensed or operated by the [facility] Office of Mental Health; or Provided by the [facility] Office for People With Developmental Disabilities. If such information is present, then the following [facility] mandated warning applies: This information [...] law may result in a fine or care home sentence or both. A general authorization for the release of medical or other information is NOT sufficient authorization for further disc losure. Allergies and Adverse Reactions Type Description Substance Reaction Status Data Source(s ) Propensity to adverse reactions to substance Invega Tr inza (paliperidone palm (3-month)) 2.625 ML paliperidone palmitate 312 MG/ML Prefilled Sy ringe [Invega] Active [facility] ([facility]) Family History Family Member Name Family Member Gender Family Member Status Date o f Status Description Data Source(s) Unknown Male Problem [facility] ([facility]) Encounters Encounter Providers Location Date Indications Data Source(s ) Outpatient Attender: Jefferson Gerard NP [facility] 07/26/2021 02:30:00 AM EDT - 07/26/2021 02:30:00 AM EDT [facility] ([facility]) Attender: Jefferson Gerard NP 07/26/2021 12:00:00 AM EDT [facility] ([facility]) Outpatient Attender: SANTIAGO Contreras/Humberto/Reed yates/Reincorbin 05/11/2021 11:10:00 AM EDT [facility] ([facility]) Outpatient Attender: Jefferson Gerard SWITCHMAN SUPERVISOR [facility] 03/30/2021 01:00:00 AM EDT - 03/30/2021 01:00:00 AM EDT [facility] ([facility]) Attender: Jefferson Gerard SWITCHMAN SUPERVISOR 03/30/2021 12:00:00 AM EDT [facility] ([facility]) Dennis Walton MD: [address] [place] [address], Ph. Attender: Dennis Walton MD [facility] Medical 03/25/2021 12:00:00 AM EDT [facility] ([facility]) Dennis Walton MD: [address] [place] [address], Ph. Attender: Dennis Walton MD [facility] Medical 03/25/2021 12:00:00 AM EDT [facility] ([facility]) Outpatient Attender: [facility] 03/16/2021 10:00:0 0 AM EDT [facility] ([facility]) Dennis Walton MD: [address] [place] [address], Ph. Attender: Dennis Walton MD [facility] Medical 03/15/2021 12:00:00 AM EDT [facility] ([facility]) Dennis Walton MD: [address] [place] [address], Ph. Attender: Dennis Walton MD [facility] Medical 03/15/2021 12:00:00 AM EDT [facility] ([facility]) Dennis Walton MD: [address] [place] [address], Ph. Attender: Dennis Walton MD [facility] Medical 01/31/2021 12:00:00 AM EDT [facility] ([facility]) Dennis Walton MD: [address] [place] [address], Ph. Attender: Dennis Walton MD [facility] Medical 01/31/2021 12:00:00 AM EDT [facility] ([facility]) Dennis Walton MD: [address] [place] [address], Ph. Attender: Dennis Walton MD [facility] Medical 01/31/2021 12:00:00 AM EDT [facility] ([facility]) Outpatient Attender: Jefferson Gerard NP [facility] 01/26/2021 01:00:00 AM EDT - 01/26/2021 01:00:00 AM EDT [facility] ([facility]) Attender: Jefferson Gerard NP 01/26/2021 12:00:00 AM EDT [facility] ([facility]) Outpatient Attender: Jefferson Gerard NP [facility] 12/01/2020 02:00:00 AM EST - 12/01/2020 02:00:00 AM EST [facility] ([facility]) Attender: Jefferson Gerard NP 12/01/2020 12:00:00 AM EST [facility] ([facility]) Attender: Jefferson Gerard NP 12/01/2020 12:00:00 AM EST [facility] ([facility]) Outpatient Attender: Jefferson Gerard NP [facility] 11/03/2020 10:00:00 AM EST - 11/03/2020 10:00:00 AM EST [facility] ([facility]) Attender: Jefferson Gerard NP 11/03/2020 12:00:00 AM EST [facility] ([facility]) Outpatient Attender: DENNIS MARTINEZ MD [facility] 09/27/2020 01:00:00 AM EST - 09/27/2020 01:00:00 AM EST [facility] ([facility]) Attender: DENNIS MARTINEZ MD 09/27/2020 12:00:00 A M EST [facility] ([facility]) Functional Status Immunizations Vaccine Date Status Description Data Source(s) Tdap 03/25/2021 11:41:00 AM EDT completed 03/25/2021 0.5 mL [facility] ([facility]) Tdap 03/25/2021 11:41:00 AM EDT completed 03/25/2021 0.5 mL [facility] ([facility]) COVID-19 VACCINE Horace 03/08/2021 12:00:00 AM EDT completed [place] Vaccine Series Complete: YESThis Data wa s Submitted to [facility] [employer]. Medications Medication Brand Name Start Date Product Form Dose Route Admi nistrative Instructions Pharmacy Instructions Status Indications Reaction Description Data Source(s) Clenpiq Clenpiq 05/25/2021 12:00:00 AM EDT active [facility] ([facility], ) POLYETHYLENE GLYCOL 3350 59 MG/ML / Pota ssium Chloride 0.01 MEQ/ML / Sodium Bicarbonate 0.02 MEQ/ML / Sodium Chloride 0.025 MEQ/ML / sodium sulfate 0.04 MEQ/ML Oral Solution [Gaviltye-G] Gavilyte-G 05/25/2021 12:00:00 AM EDT active [facility] ([facility], ) Bisacodyl 5 MG Delayed Release Oral Tablet [Dulcolax] Dulcol ax 05/25/2021 12:00:00 AM EDT active M [facility] ([facility], ) quetiapine 100 MG Oral Tablet quetiapine 04/29/2021 12:00:00 AM EDT 100 mg completed <td ID="Medicat ionRxNorm_4">028794</td><td ID="MedicationMedication_4">quetiapine</td><td ID="MedicationRoute_4"></td><td ID="MedicationRouteConcept_4"></td><td ID="MedicationStartDate_4">04/29/2021</td><td ID="MedicationStopDate_4">09/19/2021</td><td ID="MedicationDosageFrequency_4"></td><td ID="MedicationDuration_4">30</td><td ID="MedicationFormulaStrength_4">100 mg</td><td ID="MedicationDosageForm_4">tablet</td><td ID="MedicationDosageFormCode_4"></td><td ID="MedicationDosageDescription_4"></td><td ID="MedicationMedicationId_4">[id number]</td><td ID="MedicationAccount_4">[id number]</td><td ID="MedicationNpid_4">[id number]</td><td ID="MedicationAuthorFirstName_4">Jefferson</td><td ID="MedicationAuthorLastName_4">Gerard</td><td ID="MedicationTaxonomyCode_4">[id number]</td><td ID="MedicationTaxonomyDesc_4">Nurse Practitioner</td><td ID="MedicationPhoneNumber_4">[phone]</td> [facility] ([facility]) gabapentin 800 MG Oral Tablet Gabapentin 03/16/2021 12:00:00 AM EDT ORAL active [facility] ([facility]) quetiapine 100 MG Oral Tablet quetiapine 01/11/2021 12:00:00 AM EDT 100 mg completed <td ID="Medicat ionRxNorm_5">921240</td><td ID="MedicationMedication_5">quetiapine</td><td ID="MedicationRoute_5"></td><td ID="MedicationRouteConcept_5"></td><td ID="MedicationStartDate_5">01/11/2021</td><td ID="MedicationStopDate_5">02/10/2021</td><td ID="MedicationDosageFrequency_5"></td><td ID="MedicationDuration_5">30</td><td ID="MedicationFormulaStrength_5">100 mg</td><td ID="MedicationDosageForm_5">tablet</td><td ID="MedicationDosageFormCode_5"></td><td ID="MedicationDosageDescription_5"></td><td ID="MedicationMedicationId_5">[id number]</td><td ID="MedicationAccount_5">[id number]</td><td ID="MedicationNpid_5">[id number]</td><td ID="MedicationAuthorFirstName_5">Jefferson</td><td ID="MedicationAuthorLastName_5">Gerard</td><td ID="MedicationTaxonomyCode_5">[id number]</td><td ID="MedicationTaxonomyDesc_5">Nurse Practitioner</td><td ID="MedicationPhoneNumber_5">[phone]</td> [facility] ([facility]) quetiapine 400 MG Oral Tablet quetiapine 01/03/2021 12:00:00 AM EDT 400 mg completed <td ID="Medicat ionRxNorm_3">359923</td><td ID="MedicationMedication_3">quetiapine</td><td ID="MedicationRoute_3"></td><td ID="MedicationRouteConcept_3"></td><td ID="MedicationStartDate_3">01/03/2021</td><td ID="MedicationStopDate_3">09/13/2021</td><td ID="MedicationDosageFrequency_3"></td><td ID="MedicationDuration_3">28</td><td ID="MedicationFormulaStrength_3">400 mg</td><td ID="MedicationDosageForm_3">tablet</td><td ID="MedicationDosageFormCode_3"></td><td ID="MedicationDosageDescription_3"></td><td ID="MedicationMedicationId_3">[id number]</td><td ID="MedicationAccount_3">[id number]</td><td ID="MedicationNpid_3">[id number]</td><td ID="MedicationAuthorFirstName_3">Jefferson</td><td ID="MedicationAuthorLastName_3">Gerard</td><td ID="MedicationTaxonomyCode_3">[id number]</td><td ID="MedicationTaxonomyDesc_3">Nurse Practitioner</td><td ID="MedicationPhoneNumber_3">[phone]</td> [facility] ([facility]) buspirone hydrochloride 10 MG Oral Tablet buspirone 2020 12:00:00 AM EDT 10 mg completed <td ID="Medica tionRxNorm_3">140977</td><td ID="MedicationMedication_3">buspirone</td><td ID="MedicationRoute_3"></td><td ID="MedicationRouteConcept_3"></td><td ID="MedicationStartDate_3">01/03/2021</td><td ID="MedicationStopDate_3"></td><td ID="MedicationDosageFrequency_3"></td><td ID="MedicationDuration_3">28</td><td ID="MedicationFormulaStrength_3">10 mg</td><td ID="MedicationDosageForm_3">tablet</td><td ID="MedicationDosageFormCode_3"></td><td ID="MedicationDosageDescription_3"></td><td ID="MedicationMedicationId_3">[id number]</td><td ID="MedicationAccount_3">[id number]</td><td ID="MedicationNpid_3">[id number]</td><td ID="MedicationAuthorFirstName_3">Jefferson</td><td ID="MedicationAuthorLastName_3">Gerard</td><td ID="MedicationTaxonomyCode_3">[id number]</td><td ID="MedicationTaxonomyDesc_3">Nurse Practitioner</td><td ID="MedicationPhoneNumber_3">[phone]</td> [facility] ([facility]) Trazodone Hydrochloride 50 MG Oral Tablet trazodone 2020 12:00:00 AM EDT 50 mg completed <td ID="Medica tionRxNorm_2">350529</td><td ID="MedicationMedication_2">trazodone</td><td ID="MedicationRoute_2"></td><td ID="MedicationRouteConcept_2"></td><td ID="MedicationStartDate_2">01/03/2021</td><td ID="MedicationStopDate_2"></td><td ID="MedicationDosageFrequency_2"></td><td ID="MedicationDuration_2">28</td><td ID="MedicationFormulaStrength_2">50 mg</td><td ID="MedicationDosageForm_2">tablet</td><td ID="MedicationDosageFormCode_2"></td><td ID="MedicationDosageDescription_2"></td><td ID="MedicationMedicationId_2">37875</td><td ID="MedicationAccount_2">[id number]</td><td ID="MedicationNpid_2">[id number]</td><td ID="MedicationAuthorFirstName_2">Jefferson</td><td ID="MedicationAuthorLastName_2">Gerard</td><td ID="MedicationTaxonomyCode_2">[id number]</td><td ID="MedicationTaxonomyDesc_2">Nurse Practitioner</td><td ID="MedicationPhoneNumber_2">[phone]</td> [facility] ([facility]) buspirone hydrochloride 10 MG Oral Tablet buspirone 2020 12:00:00 AM EDT 10 mg completed <td ID="Medica tionRxNorm_2">488918</td><td ID="MedicationMedication_2">buspirone</td><td ID="MedicationRoute_2"></td><td ID="MedicationRouteConcept_2"></td><td ID="MedicationStartDate_2">01/03/2021</td><td ID="MedicationStopDate_2">09/13/2021</td><td ID="MedicationDosageFrequency_2"></td><td ID="MedicationDuration_2">28</td><td ID="MedicationFormulaStrength_2">10 mg</td><td ID="MedicationDosageForm_2">tablet</td><td ID="MedicationDosageFormCode_2"></td><td ID="MedicationDosageDescription_2"></td><td ID="MedicationMedicationId_2">[id number]</td><td ID="MedicationAccount_2">[id number]</td><td ID="MedicationNpid_2">[id number]</td><td ID="MedicationAuthorFirstName_2">Jefferson</td><td ID="MedicationAuthorLastName_2">Gerard</td><td ID="MedicationTaxonomyCode_2">[id number]</td><td ID="MedicationTaxonomyDesc_2">Nurse Practitioner</td><td ID="MedicationPhoneNumber_2">[phone]</td> [facility] ([facility]) Trazodone Hydrochloride 50 MG Oral Tablet trazodone 2019 12:00:00 AM EST 50 mg completed <td ID="Medica tionRxNorm_3">575486</td><td ID="MedicationMedication_3">trazodone</td><td ID="MedicationRoute_3"></td><td ID="MedicationRouteConcept_3"></td><td ID="MedicationStartDate_3">10/12/2020</td><td ID="MedicationStopDate_3"></td><td ID="MedicationDosageFrequency_3"></td><td ID="MedicationDuration_3"></td><td ID="MedicationFormulaStrength_3">50 mg</td><td ID="MedicationDosageForm_3">tablet</td><td ID="MedicationDosageFormCode_3"></td><td ID="MedicationDosageDescription_3"></td><td ID="MedicationMedicationId_3">[id number]</td><td ID="MedicationAccount_3">[id number]</td><td ID="MedicationNpid_3">[id number]</td><td ID="MedicationAuthorFirstName_3">Jefferson</td><td ID="MedicationAuthorLastName_3">Gerard</td><td ID="MedicationTaxonomyCode_3">[id number]</td><td ID="MedicationTaxonomyDesc_3">Nurse Practitioner</td><td ID="MedicationPhoneNumber_3">[phone]</td> [facility] ([facility]) quetiapine 400 MG Oral Tablet [Seroquel] Seroquel 10/12/2020 12 :00:00 AM EST 400 mg completed <td ID="Me dicationRxNorm_5">213559</td><td ID="MedicationMedication_5">Seroquel</td><td ID="MedicationRoute_5"></td><td ID="MedicationRouteConcept_5"></td><td ID="MedicationStartDate_5">10/12/2020</td><td ID="MedicationStopDate_5">12/17/2020</td><td ID="MedicationDosageFrequency_5"></td><td ID="MedicationDuration_5">30</td><td ID="MedicationFormulaStrength_5">400 mg</td><td ID="MedicationDosageForm_5">tablet</td><td ID="MedicationDosageFormCode_5"></td><td ID="MedicationDosageDescription_5"></td><td ID="MedicationMedicationId_5">63588</td><td ID="MedicationAccount_5">[id number]</td><td ID="MedicationNpid_5">[id number]</td><td ID="MedicationAuthorFirstName_5">Jefferson</td><td ID="MedicationAuthorLastName_5">Gerard</td><td ID="MedicationTaxonomyCode_5">[id number]</td><td ID="MedicationTaxonomyDesc_5">Nurse Practitioner</td><td ID="MedicationPhoneNumber_5">[phone]</td> [facility] ([facility]) duloxetine 60 MG Delayed Release Oral Capsule duloxetine 08/23/2020 12:00:00 AM EST 60 mg by mouth completed <td ID="MedicationRxNorm_1">559728</td><td ID="MedicationMedication_1">duloxetine</td><td ID="MedicationRoute_1">by mouth</td><td ID="MedicationRouteConcept_1">C64387</td><td ID="MedicationStartDate_1">08/23/2020</td><td ID="MedicationStopDate_1"></td><td ID="MedicationDosageFrequency_1">twice a day</td><td ID="MedicationDuration_1"></td><td ID="MedicationFormulaStrength_1">60 mg</td><td ID="MedicationDosageForm_1">capsule,delayed release(DR/EC)</td><td ID="MedicationDosageFormCode_1"></td><td ID="MedicationDosageDescription_1"></td><td ID="MedicationMedicationId_1">08647</td><td ID="MedicationAccount_1">[id number]</td><td ID="MedicationNpid_1">[id number]</td><td ID="MedicationAuthorFirstName_1">Jefferson</td><td ID="MedicationAuthorLastName_1">Gerard</td><td ID="MedicationTaxonomyCode_1">[id number]</td><td ID="MedicationTaxonomyDesc_1"> Nurse Practitioner</td><td ID="MedicationPhoneNumber_1">[phone]</td> [facility] ([facility]) duloxetine 60 MG Delayed Release Oral Capsule duloxetine 08/23/2020 12:00:00 AM EST 60 mg by mouth completed <td ID="MedicationRxNorm_3">562127</td><td ID="MedicationMedication_3">duloxetine</td><td ID="MedicationRoute_3">by mouth</td><td ID="MedicationRouteConcept_3">R21022</td><td ID="MedicationStartDate_3">08/23/2020</td><td ID="MedicationStopDate_3"></td><td ID="MedicationDosageFrequency_3">twice a day</td><td ID="MedicationDuration_3"></td><td ID="MedicationFormulaStrength_3">60 mg</td><td ID="MedicationDosageForm_3">capsule,delayed release(DR/EC)</td><td ID="MedicationDosageFormCode_3"></td><td ID="MedicationDosageDescription_3"></td><td ID="MedicationMedicationId_3">87521</td><td ID="MedicationAccount_3">[id number]</td><td ID="MedicationNpid_3">[id number]</td><td ID="MedicationAuthorFirstName_3">Dennis</td><td ID="MedicationAuthorLastName_3">Kristin</td><td ID="MedicationTaxonomyCode_3">[id number]</td><td ID="MedicationTaxonomyDesc_3"> Psychiatry</td><td ID="MedicationPhoneNumber_3">[phone]</td> [facility] ([facility]) duloxetine 60 MG Delayed Release Oral Capsule duloxetine 08/23/2020 12:00:00 AM EST 60 mg by mouth completed <td ID="MedicationRxNorm_4">527233</td><td ID="MedicationMedication_4">duloxetine</td><td ID="MedicationRoute_4">by mouth</td><td ID="MedicationRouteConcept_4">K51247</td><td ID="MedicationStartDate_4">08/23/2020</td><td ID="MedicationStopDate_4"></td><td ID="MedicationDosageFrequency_4">twice a day</td><td ID="MedicationDuration_4"></td><td ID="MedicationFormulaStrength_4">60 mg</td><td ID="MedicationDosageForm_4">capsule,delayed release(DR/EC)</td><td ID="MedicationDosageFormCode_4"></td><td ID="MedicationDosageDescription_4"></td><td ID="MedicationMedicationId_4">00675</td><td ID="MedicationAccount_4">[id number]</td><td ID="MedicationNpid_4">[id number]</td><td ID="MedicationAuthorFirstName_4">Dennis</td><td ID="MedicationAuthorLastName_4">Banner</td><td ID="MedicationTaxonomyCode_4">[id number]</td><td ID="MedicationTaxonomyDesc_4"> Psychiatry</td><td ID="MedicationPhoneNumber_4">[phone]</td> [facility] ([facility]) duloxetine 60 MG Delayed Release Oral Capsule duloxetine 08/23/2020 12:00:00 AM EST 60 mg by mouth completed <td ID="MedicationRxNorm_2">247030</td><td ID="MedicationMedication_2">duloxetine</td><td ID="MedicationRoute_2">by mouth</td><td ID="MedicationRouteConcept_2">I85735</td><td ID="MedicationStartDate_2">08/23/2020</td><td ID="MedicationStopDate_2"></td><td ID="MedicationDosageFrequency_2">twice a day</td><td ID="MedicationDuration_2"></td><td ID="MedicationFormulaStrength_2">60 mg</td><td ID="MedicationDosageForm_2">capsule,delayed release(DR/EC)</td><td ID="MedicationDosageFormCode_2"></td><td ID="MedicationDosageDescription_2"></td><td ID="MedicationMedicationId_2">82778</td><td ID="MedicationAccount_2">[id number]</td><td ID="MedicationNpid_2">[id number]</td><td ID="MedicationAuthorFirstName_2">Mckenzie</td><td ID="MedicationAuthorLastName_2">José Miguel</td><td ID="MedicationTaxonomyCode_2">[id number]</td><td ID="MedicationTaxonomyDesc_2"> Nurse Practitioner</td><td ID="MedicationPhoneNumber_2">[phone]</td> [facility] ([facility]) quetiapine 50 MG Oral Tablet quetiapine 07/28/2020 12:00:00 AM EDT 50 mg by mouth completed <td ID="Medica tionRxNorm_3">034515</td><td ID="MedicationMedication_3">quetiapine</td><td ID="MedicationRoute_3">by mouth</td><td ID="MedicationRouteConcept_3">A54883</td><td ID="MedicationStartDate_3">07/28/2020</td><td ID="MedicationStopDate_3"></td><td ID="MedicationDosageFrequency_3">at bedtime</td><td ID="MedicationDuration_3">30</td><td ID="MedicationFormulaStrength_3">50 mg</td><td ID="MedicationDosageForm_3">tablet</td><td ID="MedicationDosageFormCode_3"></td><td ID="MedicationDosageDescription_3"></td><td ID="MedicationMedicationId_3">01612</td><td ID="MedicationAccount_3">[id number]</td><td ID="MedicationNpid_3">[id number]</td><td ID="MedicationAuthorFirstName_3">Mckenzie</td><td ID="MedicationAuthorLastName_3">José Miguel</td><td ID="MedicationTaxonomyCode_3">[id number]</td><td ID="MedicationTaxonomyDesc_3">Nurse Practitioner</td><td ID="MedicationPhoneNumber_3">[phone]</td> [facility] ([facility]) quetiapine 50 MG Oral Tablet quetiapine 07/28/2020 12:00:00 AM EDT 50 mg by mouth completed <td ID="Medica tionRxNorm_4">984576</td><td ID="MedicationMedication_4">quetiapine</td><td ID="MedicationRoute_4">by mouth</td><td ID="MedicationRouteConcept_4">I86977</td><td ID="MedicationStartDate_4">07/28/2020</td><td ID="MedicationStopDate_4">11/26/2020</td><td ID="MedicationDosageFrequency_4">at bedtime</td><td ID="MedicationDuration_4">30</td><td ID="MedicationFormulaStrength_4">50 mg</td><td ID="MedicationDosageForm_4">tablet</td><td ID="MedicationDosageFormCode_4"></td><td ID="MedicationDosageDescription_4"></td><td ID="MedicationMedicationId_4">35711</td><td ID="MedicationAccount_4">[id number]</td><td ID="MedicationNpid_4">[id number]</td><td ID="MedicationAuthorFirstName_4">Dennis</td><td ID="MedicationAuthorLastName_4">Ulberg</td><td ID="MedicationTaxonomyCode_4">[id number]</td><td ID="MedicationTaxonomyDesc_4">Psychiatry</td><td ID="MedicationPhoneNumber_4"> [phone]</td> [facility] ([facility]) Sucralfate 1000 MG Oral Tablet sucralfat e 1 gram tablet TAKE ONE TABLET BY MOUTH FOUR TIMES DAILY sucralfate 1 gram tablet TAKE ONE TABLET BY MOUTH FOUR TIMES DAILY completed sucralfate 1000 MG Oral Tablet [facility] ([facility]) quetiapine 100 MG Oral Tablet quetiapine 100 mg tablet TAKE 1/2 TABLET BY MOUTH @8PM with 400 MG TABLET FOR total DOSE of 450 MG quetiapine 100 mg tablet TAKE 1/2 TABLET BY MOUTH @8PM with 400 MG TABLET FOR total DOSE of 450 MG completed quetiapine 100 MG Oral Table t [facility] ([facility]) tramadol hydrochloride 50 MG Oral Tablet tramadol 50 mg tablet TAKE ONE TABLET BY MOUTH TWICE DAILY, MAX DAILY DOSE TWO TABLETS tramadol 50 mg tablet TAKE ONE TABLET BY MOUTH TWICE DAILY, MAX DAILY DOSE TWO TABLETS completed tramadol hydrochloride 50 MG Oral Tablet [facility] ([facility]) vitamin B complex completed vi tamin B complex [facility] ([facility]) Promethazine Hydrochloride 25 MG Oral Ta blet promethazine 25 mg tablet TAKE ONE TABLET BY MOUTH EVERY SIX HOURS NEEDED FOR NAUSEA promethazine 25 mg tablet TAKE ONE TABLET BY MOUTH EVERY SIX HOURS NEEDED FOR NAUSEA completed promethazine hydrochloride 25 MG Oral Tablet [place] ([facility]) quetiapine 100 MG Oral Tablet quetiapine 100 mg tablet TAKE 1/2 TABLET BY MOUTH @8PM quetiapine 100 mg tablet TAKE 1/2 TABLET BY MOUTH @8PM completed quetiapine 100 MG Oral Tablet AT [facility]) gabapentin 600 MG Oral Tablet gabapentin 600 mg tablet TAKE ONE TABLET BY MOUTH @8AM and TAKE ONE TABLET @12PM and TAKE ONE TABLET @8PM gabapentin 600 mg tablet TAKE ONE TABLET BY MOUTH @8AM and TAKE ONE TABLET @12PM and TAKE ONE TABLET @8PM completed gabapentin 600 M G Oral Tablet [place] ([facility]) Hydroxyzine Hydrochloride 50 MG Oral Tab let hydroxyzine HCl 50 mg tablet TAKE ONE TABLET BY MOUTH FOUR TIMES DAILY NEEDED hydroxyzine HCl 50 mg tablet TAKE ONE TABLET BY MOUTH FOUR TIMES DAILY NEEDED completed hydroxyzine hydrochloride 50 MG Oral Tablet [place] ([facility]) meloxicam 15 MG Oral Tablet meloxicam 15 mg tablet meloxicam 15 mg ta blet completed meloxicam 15 MG Oral Tablet [place] ([facility]) Trazodone Hydrochloride 50 MG Oral Table t trazodone 50 mg tablet TAKE ONE TABLET BY MOUTH @8PM as needed trazodone 50 mg tablet TAKE ONE TABLET B Y MOUTH @8PM as needed completed trazodone hydr ochloride 50 MG Oral Tablet [place] ([facility]) Sucralfate 1000 MG Oral Tablet sucralfat e 1 gram tablet TAKE ONE TABLET BY MOUTH FOUR TIMES DAILY sucralfate 1 gram tablet TAKE ONE TABLET BY MOUTH FOUR TIMES DAILY completed sucralfate 1000 MG Oral Tablet [facility] ([facility]) gabapentin 600 MG Oral Tablet gabapentin 600 mg tablet TAKE ONE TABLET BY MOUTH @8AM and TAKE ONE TABLET @12PM and TAKE ONE TABLET @8PM gabapentin 600 mg tablet TAKE ONE TABLET BY MOUTH @8AM and TAKE ONE TABLET @12PM and TAKE ONE TABLET @8PM completed gabapentin 600 M G Oral Tablet [facility] ([facility]) tramadol hydrochloride 50 MG Oral Tablet tramadol 50 mg tablet TAKE ONE TABLET BY MOUTH TWICE DAILY, MAX DAILY DOSE TWO TABLETS tramadol 50 mg tablet TAKE ONE TABLET BY MOUTH TWICE DAILY, MAX DAILY DOSE TWO TABLETS completed tramadol hydrochloride 50 MG Oral Tablet [place] ([facility]) tramadol hydrochloride 50 MG Oral Tablet tramadol 50 mg tablet TAKE ONE TABLET BY MOUTH TWICE DAILY, MAX DAILY DOSE TWO TABLETS tramadol 50 mg tablet TAKE ONE TABLET BY MOUTH TWICE DAILY, MAX DAILY DOSE TWO TABLETS completed tramadol hydrochloride 50 MG Oral Tablet [place] ([facility]) vitamin B complex completed vi tamin B complex [place] ([facility]) duloxetine 30 MG Delayed Release Oral Ca psule duloxetine 30 mg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 Interpretation Code Description Data Angela rce(s) Supporting Document(s) Triiodothyronine resin uptake (T3RU) in Serum or Plasma 27 % 22 -35 T3 Uptake [facility]) Thyroxine (T4) [Mass/volume] in Serum or Plasma 5.7 mcg/dL 4.9-10 .5 T4 (Thyroxine), Total [place] ([facility]) Thyroxine (T4) free index in Serum or Plasma by calculation 1.4-3.8 Free T4 Index (T7) [place] ([facility]) Thyrotropin [Units/volume] in Serum or Plasma 0.81 mIU/L 0.40-4.50 Tsh [place] ([facility]) ID Date Data Source [id number] 03/15/2021 09:16:00 AM EDT [place] ([facility]) Name Value Range Interpretation Code Description Data Angela rce(s) Supporting Document(s) Triglyceride [Mass/volume] in Serum or Plasma 251 mg/dL <150 Above high normal Triglycerides [place] ([facility]) Cholesterol in LDL [Mass/volume] in Serum or Plasma by calculation 123 mg/dL_(calc) Above high normal LDL-cholesterol [place] ([facility]) Cholesterol in HDL [Mass/volume] in Serum or Plasma 38 mg/dL > or = 40 Below low normal HDL Cholesterol [place] ([facility]) Cholesterol.total/Cholesterol in HDL [Mass Ratio] in Serum o r Plasma 5.3 (calc) <5.0 Above high normal Chol/hdlc Ratio [facility] ([facility]) Cholesterol [Mass/volume] in Serum or Plasma 200 mg/dL <200 Above high normal Cholesterol, Total [place] ([facility]) Cholesterol non HDL [Mass/volume] in Serum or Plasma 162 mg/dL_( calc) <130 Above high normal Non HDL Cholesterol [place] ([facility]) Procedure Social History Code Duration Value Status Description Data Source(s ) Smoking 07/26/2021 12:00:00 AM EDT Current every day smoker co mpleted Current every day smoker [place] ([facility]) Smoking 03/30/2021 12:00:00 AM EDT Current every day smoker co mpleted Current every day smoker [facility] ([facility]) Smoking 01/26/2021 12:00:00 AM EDT Current every day smoker co mpleted Current every day smoker [facility] ([facility]) Smoking 12/01/2020 12:00:00 AM EST Current every day smoker co mpleted Current every day smoker [facility] ([facility]) Smoking 11/03/2020 12:00:00 AM EST Current every day smoker co mpleted Current every day smoker [facility] ([facility]) Smoking 09/27/2020 12:00:00 AM EST Current every day smoker co mpleted Current every day smoker [facility] ([facility]) Vital Signs ID Date Data Source [id number] Name Value Range Interpretation Code Description Data Source(s) Systolic blood pressure 118 mm[Hg] 118 mm[Hg] Dwaine RICHTER ([facility], ) Diastolic blood pressure 70 mm[Hg] 70 mm[Hg] [facility] ([facility]) Body height 67 [in_i] 67 [in_i] [facility] ([facility]) 5'7" Body weight 230.00 [lb_av] 230.00 [lb_av] [facility] Body mass index (BMI) [Ratio] 36.0 kg/m2 36.0 k g/m2 [facility] ([facility]) Venus body weight 148 [lb_av] 148 [lb_av] [facility] ([facility]) Body weight 104.[address] [facility] ([facility]) Body surface area Derived from formula 2.15 m2 2[address] [facility] ([facility]) Diastolic blood pressure 87 mm[Hg] 87 mm[Hg] [place] ([facility]) Body height 68 [in_i] 68 [in_i] [place] ([facility]) Body mass index (BMI) [Ratio] 36.2 kg/m2 36.2 k g/m2 [place] ([facility]) Systolic blood pressure 133 mm[Hg] 133 mm[Hg] A THENA ([facility]) Body weight 3808 [oz_av] 3808 [oz_av] [place] ([facility]) Diastolic blood pressure 87 mm[Hg] 87 mm[Hg] [facility] ([facility]) Body height 68 [in_i] 68 [in_i] [place] ([facility]) Body mass index (BMI) [Ratio] 36.2 kg/m2 36.2 k g/m2 [facility] ([facility]) Systolic blood pressure 133 mm[Hg] 133 mm[Hg] [facility] Body weight 3808 [oz_av] 3808 [oz_av] [facility] ([facility]) Body height 68 [in_i] 68 [in_i] [facility] ([facility]) Body height 68 [in_i] 68 [in_i] [facility] ([facility]) Diastolic blood pressure 79 mm[Hg] 79 mm[Hg] [place] ([facility]) Body height 68 [in_i] 68 [in_i] [facility] ([facility]) Body mass index (BMI) [Ratio] 39 kg/m2 39 kg/ m2 [place] ([facility]) Systolic blood pressure 126 mm[Hg] 126 mm[Hg] [facility] Body weight 4100 [oz_av] 4100 [oz_av] [place] ([facility]) Diastolic blood pressure 79 mm[Hg] 79 mm[Hg] [place] ([facility]) Body height 68 [in_i] 68 [in_i] [facility] ([facility]) Body mass index (BMI) [Ratio] 39 kg/m2 39 kg/ m2 [facility] ([facility]) Systolic blood pressure 126 mm[Hg] 126 mm[Hg] [facility] Body weight 4100 [oz_av] 4100 [oz_av] [place] ([facility]) Diastolic blood pressure 79 mm[Hg] 79 mm[Hg] [facility] ([facility]) Body height 68 [in_i] 68 [in_i] [place] ([facility]) Body mass index (BMI) [Ratio] 39 kg/m2 39 kg/ m2 [facility] ([facility]) Systolic blood pressure 126 mm[Hg] 126 mm[Hg] [facility] Body weight 4100 [oz_av] 4100 [oz_av] [place] ([facility]) Systolic blood pressure 0 mm[Hg] Normal (applies t o non-numeric results) 0 mm[Hg] [facility] ([facility]) Diastolic blood pressure 0 mm[Hg] Normal (applies to non-numeric results) 0 mm[Hg] [facility] ([facility]) Body height 0.00 in Normal (applies to non-numeric resu lts) [facility].00 [facility] Body weight Measured 0.00 lbs Normal (applies to n on-numeric results) 0.00 lbs [facility] ([facility]) Body mass index (BMI) [Ratio] 0.00 kg/m2 No rmal (applies to non-numeric results) 0.00 kg/m2 [facility] ([facility]) Body height 0.00 in Normal (applies to non-numeric resu lts) 0.00 in [facility] ([facility]) Body weight Measured 0.00 lbs Normal (applies to n on-numeric results) 0.00 lbs [facility] ([facility]) Body mass index (BMI) [Ratio] 0.00 kg/m2 No rmal (applies to non-numeric results) 0.00 kg/m2 [facility] ([facility]) Systolic blood pressure 0 mm[Hg] Normal (applies t o non-numeric results) 0 mm[Hg] [facility] ([facility]) Diastolic blood pressure 0 mm[Hg] Normal (applies to non-numeric results) 0 mm[Hg] [facility] ([facility]) Body height 0.00 in Normal (applies to non-numeric resu lts) 0.00 in [facility] ([facility]) Body weight Measured 0.00 lbs Normal (applies to n on-numeric results) 0.00 lbs [facility] ([facility]) Body mass index (BMI) [Ratio] 0.00 kg/m2 No rmal (applies to non-numeric results) 0.00 kg/m2 [facility] ([facility]) Systolic blood pressure 0 mm[Hg] Normal (applies t o non-numeric results) 0 mm[Hg] [facility] ([facility] [place] [place] [facility]) Diastolic blood pressure 0 mm[Hg] Normal (applies to non-numeric results) 0 mm[Hg] [facility] ([facility]) Patient Treatment Plan of Care Planned Activity Planned Date Details Description Data Source (s) vitamin B complex [facility]KE ([facility]) Trazodone Hydrochloride 50 MG Oral Tablet [facility] ([facility]) tramadol hydrochloride 50 MG Oral Tablet [facility] ([facility]) Sucralfate 1000 MG Oral Tablet [facility] ([facility]) quetiapine 100 MG Oral Tablet [place] ([facility]) Promethazine Hydrochloride 25 MG Oral Tablet [facility] ([facility]) meloxicam 15 MG Oral Tablet [place] ([facility]) Hydroxyzine Hydrochloride 50 MG Oral Tablet [place] ([facility]) gabapentin 600 MG Oral Tablet [place] ([facility]) duloxetine 30 MG Delayed Release Oral Capsule [facility] ([facility]) vitamin B complex [place] ([facility]) Trazodone Hydrochloride 50 MG Oral Tablet [place] ([facility]) tramadol hydrochloride 50 MG Oral Tablet [place] ([facility]) Sucralfate 1000 MG Oral Tablet [place] ([facility]) quetiapine 100 MG Oral Tablet [place] ([facility]) Promethazine Hydrochloride 25 MG Oral Tablet [place] ([facility]) meloxicam 15 MG Oral Tablet [place] ([facility]) Hydroxyzine Hydrochloride 50 MG Oral Tablet [place] ([facility]) gabapentin 600 MG Oral Tablet [place] ([facility]) duloxetine 30 MG Delayed Release Oral Capsule [place] ([facility]) Trazodone Hydrochloride 50 MG Oral Tablet [place] ([facility]) tramadol hydrochloride 50 MG Oral Tablet [place] ([facility]) Sucralfate 1000 MG Oral Tablet [place] ([facility]) quetiapine 100 MG Oral Tablet [place] ([facility]) Promethazine Hydrochloride 25 MG Oral Tablet [place] ([facility]) Hydroxyzine Hydrochloride 50 MG Oral Tablet [place] ([facility]) duloxetine 30 MG Delayed Release Oral Capsule [facility] ([facility])
[2021-08-15] MEDS ORDERED: GI COCKTAIL 50ML BTL(HYOSCYAMINE/MAALOX/LIDOCAINE VISCOUS)(1:3:1) PO ONE (07:40)
[2021-08-15] MEDS ORDERED: PANTOPRAZOLE 40MG VIAL (C9113 PER 1) IV ONE (07:40)
[2021-08-15] MEDS ORDERED: SUCRALFATE 1 GM TAB PO ONE (07:40)
[2021-08-15 08:55] LABS: BASO # 0.1 10^3/uL (0.0-0.2); BASO % 0.5 % (0.0-1.0); EOS # 0.2 10^3/uL (0.0-0.5); EOS % 1.6 % (0.0-3.0); HEMATOCRIT 48.9 % (42.0-52.0); HEMOGLOBIN 16.5 g/dl (13.5-17.5); LYMPH # 4.3 10^3/uL (1.5-5.0); LYMPH % 34.3 % (24.0-44.0); MEAN CORPUSCULAR HEMOGLOBIN 29.4 pg (27.0-33.0); MEAN CORPUSCULAR HGB CONC 33.7 g/dl (32.0-36.5); MEAN CORPUSCULAR VOLUME 87.2 fl (80.0-96.0); MONO # 0.9 10^3/uL (0.0-0.8); MONO % 6.9 % (2.0-8.0); NEUTROPHILS # 7.1 10^3/uL (1.5-8.5); NEUTROPHILS % 56.4 % (36.0-66.0); PLATELET COUNT, AUTOMATED 301 10^3/uL (150-450); RED BLOOD COUNT 5.61 10^6/uL (4.30-6.10); WHITE BLOOD COUNT 12.5 10^3/uL (4.0-10.0)
[2021-08-15 09:21] LABS: ALBUMIN 4.2 GM/DL (3.2-5.2); BILIRUBIN,DIRECT 0.1 MG/DL (0.0-0.2); BILIRUBIN,TOTAL 0.5 MG/DL (0.2-1.0); TOTAL PROTEIN 7.4 GM/DL (6.4-8.2)
[2021-08-15] MEDS ORDERED: CARA1TAB6 PO (09:54)
[2021-08-15 09:58] VITALS: BP 123/67
== END 2021-08-15 10:15 | disposition home or self-care (01) ==
LOC: M ED 02:42
DX: K29.70 Gastritis, unspecified, without bleeding (principal); I10 Essential (primary) hypertension; K21.9 Gastro-esophageal reflux disease without esophagitis; R56.9 Unspecified convulsions; Z79.899 Other long term (current) drug therapy
CPT/HCPCS: 36415; 80047; 80076; 83690; 85025; 96374; 99284; C9113